=== PATIENT | male | born 1955 | race Caucasian/White ===

== ENCOUNTER → 2017-04-17 | Outpatient (CLI) | payer MEDICARE, BC ==
[2017-04-17 10:52] LABS: ALT 41 U/L (21-72); AST 36 U/L (17-59); Alkaline Phosphatase 70 U/L (38-126); Anion Gap 10 mmol/L; Blood Urea Nitrogen 13 mg/dL (9-20); Calcium 8.9 mg/dL (8.4-10.2); Carbon Dioxide 25 mmol/L (22-30); Chloride 108 mmol/L (98-107); Cholesterol 164 mg/dL (<200); Glucose 98 mg/dL (74-99); HDL Cholesterol 49 mg/dL (40-60); Non-African American GFR(MDRD) >60 (>60 ml/min/1.73 sqM); Potassium 4.1 mmol/L (3.5-5.1); Sodium 143 mmol/L (137-145); Total Bilirubin 0.4 mg/dL (0.2-1.3); Total Protein 7.7 g/dL (6.3-8.2)
== END | disposition home or self-care (01) ==
LOC: LABWHC1 09:27
PROVIDERS: ATTEND Internal Medicine Interventional Cardiology
DX: E78.2 Mixed hyperlipidemia (principal); I42.8 Other cardiomyopathies
CPT/HCPCS: 36415; 80053; 80061; 84443

== ENCOUNTER 2019-11-26 10:04 | Day surgery (SDC) | payer MEDICARE, BC ==
[2019-11-25 11:39] VITALS: BMI 40.8
[~2019-11-26 10:04] MED LIST: LACTATED RINGERS 1,000 ML IV SCH; LIDOCAINE 1% (10MG/ML) FOR IV START INTRADERMA PRN; SODIUM CHLORIDE 0.9% 1,000 ML IV SCH
[2019-11-26 11:12] LABS: Basophils # (A) 0.1 k/uL (0-0.2); Basophils % (A) 1 %; Eosinophils # (A) 0.3 k/uL (0-0.7); Eosinophils % (A) 4 %; HCT 43.4 % (39.0-53.0); Lymphocytes # (A) 1.8 k/uL (1.0-4.8); Lymphocytes % (A) 28 %; MCHC 32.3 g/dL (31.0-37.0); MCV 89.8 fL (80.0-100.0); Mean Platelet Volume 7.3; Monocytes # (A) 0.4 k/uL (0-1.0); Monocytes % (A) 5 %; Neutrophils % (A) 61 %; Platelet Count 217 k/uL (150-450); RBC 4.84 m/uL (4.30-5.90); RDW 15.1 % (11.5-15.5); WBC 6.6 k/uL (3.8-10.6)
[2019-11-26] MEDS ORDERED: SODIUM CHLORIDE 0.9% 1,000 ML IV ONE (11:18)
[2019-11-26 11:24] LABS: African American GFR (CKD) >90 (>60 ml/min/1.73 sqM); Anion Gap 8 mmol/L; Blood Urea Nitrogen 15 mg/dL (9-20); Calcium 8.9 mg/dL (8.4-10.2); Carbon Dioxide 24 mmol/L (22-30); Chloride 106 mmol/L (98-107); Glucose 94 mg/dL (74-99); Non-African American GFR(CKD) >90 (>60 ml/min/1.73 sqM); Potassium 4.4 mmol/L (3.5-5.1); Sodium 138 mmol/L (137-145)
[2019-11-26] MEDS ORDERED: LIDOCAINE 1% INJ 10MG/ML (20 ML MDV) ONE ×2 (13:31→13:48)
[2019-11-26] MEDS ORDERED: HEPARIN SODIUM,PORCINE 10,000 UNIT/ML 1 ML VIAL ONE (13:48)
[2019-11-26] MEDS ORDERED: GLYCOPYRROLATE 0.2 MG/ML 2 ML VIAL ONE (13:48)
[2019-11-26] MEDS ORDERED: fentaNYL (PF) 50 MCG/ML 2 ML AMP ONE (13:48)
[2019-11-26] MEDS ORDERED: NEOSTIGMINE 1 MG/ML 10 ML VIAL ONE (13:48)
[2019-11-26] MEDS ORDERED: ISOPROTERENOL 250 MCG/1.25 ML SYR IV ONE (13:48)
[2019-11-26] MEDS ORDERED: ePHEDrine SULFATE/0.9% NACL/PF 50 MG/5 ML SYRINGE IV ONE (13:48)
[2019-11-26] MEDS ORDERED: MIDAZOLAM 2 MG/2 ML VIAL ONE (13:48)
[2019-11-26] MEDS ORDERED: FUROSEMIDE 10 MG/ML 2 ML VIAL ONE (13:48)
[2019-11-26] MEDS ORDERED: ROCURONIUM BROMIDE 10 MG/ML 5 ML VIAL IV ONE (13:48)
[2019-11-26] MEDS ORDERED: SUCCINYLCHOLINE CHLORIDE VIAL 200 MG/10 ML VIAL IV ONE (13:48)
[2019-11-26] MEDS ORDERED: PHENYLEPHRINE-0.9% NACL SYG 1 MG/10 ML SYRINGE ONE (13:48)
[2019-11-26] MEDS ORDERED: PROTAMINE SULFATE 10 MG/ML 5 ML VIAL IV ONE (13:48)
[2019-11-26] MEDS ORDERED: PROPOFOL 10 MG/ML 20 ML VIAL IV ONE (13:48)
[2019-11-26] MEDS ORDERED: LIDOCAINE 1% INJ 10MG/ML (20 ML MDV) SQ ONE (14:40)
[2019-11-26] MEDS ORDERED: HEPARIN SOD,PORK IN 0.45% NACL 25,000 UNIT in 0.45% NACL 1 250ML.BAG IV ONE (15:08)
[2019-11-26] MEDS ORDERED: IOPAMIDOL-370 100ML BTL INJ ONE (16:50)
[2019-11-26] MEDS ORDERED: HEPARIN SODIUM (1,000 UNIT/ML) 1,000 UNIT in SODIUM CHLORIDE 0.9% 1,000 ML IRRIGATION ONE (17:00)
[2019-11-26] MEDS ORDERED: SODIUM CHLORIDE 0.9% 500 ML 500 ML IV ONE (17:19)
[2019-11-26] MEDS ORDERED: ACETAMINOPHEN TAB 325 MG TAB PO PRN (18:40)
--- NOTE | 2019-11-26 18:45 | P.PRLE ---
RE: NormaflorSajanr Kwabena Mr. Vaughn underwent an A. fib ablation following which we could not induce any atrial tachycardia or atrial fibrillation. He will continue ELIQUIS 5 mg twice daily and I would recommend reducing the dose of amiodarone to 100 mg by mouth daily by 22 of December. He tolerated the procedure well without any acute complications. Thank you for entrusting me with the care of the patient Warm regards Sincerely Kam Lloyd
--- NOTE | 2019-11-26 18:54 | P.PCN ---
Preoperative Diagnosis: Diagnosis Atrial fibrillation, symptomatic, refractory to therapy/amiodarone Paroxysmal Associated with widening of the QRS, suggestive of apparent conduction Result No left atrial appendage mass seen on intracardiac echo Successful pulmonary vein isolation of all veins using cryo-ablation Complete entrance block in all 4 veins confirmed No evidence for phrenic nerve injury Linear ablation in the left atrium along the septum between the right pulmonary veins anteriorly and the transseptal puncture site Ablation was performed along the fractionated electrograms Thereafter diagnostic EP study did NOT reveal any inducible atrial fibrillation or atrial tachycardia despite high-dose Isuprel, burst stimulation, extra stimulation and straight pacing Left bundle branch block aberrancy with atrial pacing at a cycle length of 230 ms, consistent with his clinical presentation Esophageal deflection YES Electrical cardioversion with a synchronized shock across the chest NO Procedure details Patient was brought to the EP lab in a fasting state. Written informed consent was obtained prior to the procedure. Procedure performed under general anesthesia After initial muscle relaxant use, muscle relaxants were not given thereafter in order to assess phrenic nerve during procedure. Patient prepped and draped as per protocol Full cryo-set up with standard preparation of the cryoablation tools done. Femoral Venous access obtained on the right and left groins Venous and arterial Sheaths placed. Diagnostic catheters for the high right atrium, phrenic nerve stimulation and pacing, His bundle, RV and coronary sinus placed Intracardiac echo catheter placed. Long sheath placed in the right atrium Left and right transseptal catheterization performed under intracardiac echo guidance. Intravenous heparin with aCT above 300 Later, catheter positioning and balloon positioning in the left atrium, under intracardiac echo guidance Diagnostic EP study with Drug infusion Coronary sinus pacing and recording Baseline measurements Sinus cycle length 1065 ms, [place] interval 157 ms, QRS 116 ms, QT 470 ms AH interval 60 ms and HV interval 48 ms Atrial pacing performed from the coronary sinus, 3 sites RV pacing performed Transseptal catheterization performed RA pressure 17/8/13 LA pressure 21/10/14 Transseptal catheterization performed with standard sheath. The cryoablation sheath was then placed with an over the wire exchange without any acute complications. All 4 pulmonary veins were isolated in the following sequence: Left superior followed by left inferior followed by right superior followed by right inferior The cryo-ablation balloon was placed at the os of each vein 1.5 mL of IV dye was injected to confirm an occluded vein Goal during cryoablation was to achieve complete occlusion of the pulmonary vein, achieve -30 degrees C at 30 seconds and achieve -40 degrees C at 60 seconds and a time to effect of less than 60-90 seconds, . If not the balloon was repositioned to obtain this result After completion of Cryoblation with durations from 180-240 seconds, entrance block was confirmed with the Attain circular catheter in a roving fashion around the antrum of the pulmonary veins Phrenic nerve pacing was performed from the SVC, right innominate vein area and diaphragm voltage was monitored. Diaphragmatic contractions were also monitored manually for strength of contraction. Parameter goals for each cryo freeze Complete occlusion of the appropriate vein -30 degrees C by 30 seconds -40 degrees C by 60 seconds Minimum between minus 40-55 degrees C Thaw time greater than 10 seconds Balloon visualized by intracardiac echo The esophagus was intubated. Esophageal Temperature monitoring with a CIRCA catheter formed. Esophageal deflection for hypothermia of the esophagus below 30 degrees C Left superior pulmonary vein Complete isolation, entrance block Left inferior pulmonary vein Complete isolation, entrance block Right superior pulmonary vein, during phrenic nerve pacing Complete isolation, entrance block Right inferior pulmonary vein, during phrenic nerve pacing Complete isolation, entrance block At the end of the procedure the Achieve catheter was once again used to check for entrance block Phrenic nerve stimulation was performed to confirm diaphragmatic stimulation the end of the procedure Cine fluoroscopy was performed at the very end of the procedure to confirm movement of both diaphragms with inspiration and expiration At the end of the procedure the patient was extubated Heparin was reversed Venous sheaths were removed and hemostasis assured Procedures performed (PVI followed by linear ablation) Diagnostic EP study with attempted arrhythmia induction on off Isuprel CS pacing and recording Left and right transseptal catheterization 3-D mapping of the tachycardia 3D mapping) Intracardiac echocardiography Pulmonary vein isolation with transseptal and comprehensive EPS, [id number] Linear ablation, left atrium, +[id number] Drug Infusion +[id number]
--- NOTE | 2019-11-26 18:58 | P.PCN ---
Preoperative Diagnosis: Extended procedure duration This was a long procedure on account of the anatomy and the size of the pulmonary veins Significantly rotated heart The left superior pulmonary vein was very superiorly and anteriorly directed Right inferior pulmonary vein was very posteriorly directed The left superior pulmonary vein in particular as well as the right inferior pulmonary veins were quite large Occluding this vein was challenging but finally successful It took multiple attempts at the left superior pulmonary vein to get a true antral level isolation with the cryo balloon Occluding the right inferior pulmonary vein was also challenging finally successful All 4 veins were completely isolated and quiescent at the end of the procedure with both entrance and exit block Voltage mapping was also performed for all 4 pulmonary veins The segment of the anterior wall between the right sided pulmonary veins and the septal linear ablation Was also quiescent with exit block
--- NOTE | 2019-11-26 19:01 | P.DS ---
Providers Attending physician: Kam Lloyd Primary care physician: [facility] Course: Impression Symptomatic paroxysmal atrial fibrillation, refractory to amiodarone Intermittent wide QRS tachycardia Left bundle branch block aberrancy noted with atrial pacing at a cycle length of 230 ms at EP study Successful isolation of all 4 pulmonary veins with entrance and exit block Linear ablation along the septum of the left atrium with exit block within the atrial segment between the right-sided pulmonary veins and the septal linear ablation Plan Lifelong anticoagulation Reduce the dose of amiodarone to 100 mg by mouth daily in 3-4 weeks Follow-up in the office with Dr. Crespo in 1-2 weeks Plan - Discharge Summary Discharge Rx Participant: Yes New Discharge Prescriptions: Continue Sertraline HCl [Zoloft] 100 mg PO DAILY Metoprolol Tartrate 50 mg PO BID traMADol HCL [Ultram] 50 mg PO BID PRN PRN Reason: Pain rOPINIRole HCL [Requip] 4 mg PO BID Levothyroxine Sodium [Synthroid] 175 mcg PO DAILY Atorvastatin [Lipitor] 40 mg PO DAILY Amiodarone [Cordarone] 200 mg PO DAILY #0 Tamsulosin [Flomax] 0.4 mg PO DAILY Naproxen [Naprosyn] 500 mg PO Q12HR PRN PRN Reason: Pain Diclofenac Sodium Gel [Voltaren Gel] 4 gm TOPICAL QID PRN PRN Reason: Pain Pregabalin [Lyrica] 150 mg PO BID Docusate [Colace] 100 mg PO DAILY Apixaban [Eliquis] 5 mg PO BID Discharge Medication List Metoprolol Tartrate 50 mg PO BID 10/24/14 [History] Sertraline HCl [Zoloft] 100 mg PO DAILY 10/24/14 [History] Atorvastatin [Lipitor] 40 mg PO DAILY 04/01/16 [History] Levothyroxine Sodium [Synthroid] 175 mcg PO DAILY 04/01/16 [History] rOPINIRole HCL [Requip] 4 mg PO BID 04/01/16 [History] traMADol HCL [Ultram] 50 mg PO BID PRN 04/01/16 [History] Amiodarone [Cordarone] 200 mg PO DAILY #0 04/05/16 [Rx] Apixaban [Eliquis] 5 mg PO BID 11/25/19 [History] Diclofenac Sodium Gel [Voltaren Gel] 4 gm TOPICAL QID PRN 11/25/19 [History] Docusate [Colace] 100 mg PO DAILY 11/25/19 [History] Naproxen [Naprosyn] 500 mg PO Q12HR PRN 11/25/19 [History] Pregabalin [Lyrica] 150 mg PO BID 11/25/19 [History] Tamsulosin [Flomax] 0.4 mg PO DAILY 11/25/19 [History] Follow up Appointment(s)/Referral(s): Maurice Crespo MD [STAFF PHYSICIAN] - 1 Week Activity/Diet/Wound Care/Special Instructions: Post EP study - Ablation instructions 1. Keep access sites dry for 2 days. 2. No heavy lifting or straining for 2 days. 3. Avoid bending the hips repeatedly for 2 days. 4. You may go up and down stairs slowly Call if the following is noted 1. Bleeding, increasing swelling or pain at the access sites. 2. Increasing chest discomfort, especially upon taking a deep breath. 3. Increasing shortness of breath, at rest or with exertion. 4. Undue cough / phlegm 5. Difficulty or pain while swallowing. 6. Pain or change in color in the extremities. 7. Fever, chills, rigors. 8. Increasing headache or neurologic symptoms. 9. Dizziness, fainting, palpitations Discharge Disposition: HOME SELF-CARE
--- NOTE | 2019-11-26 19:05 | PCN ---
PROCEDURE NOTE Sajan Vaughn is a 63-year-old male patient who has symptomatic paroxysmal atrial fibrillation with RVR with widening of the QRS intermittently suggestive of aberrant conduction. He has failed amiodarone. He was brought in for an atrial fibrillation ablation and a diagnostic EP study. The patient was brought to the EP lab in a fasting state. Written informed consent was obtained prior to the procedure. Please see the rest of the dictation separately. MMODL / IJN: [id number] /
[2019-11-26] MEDS ORDERED: ACETAMINOPHEN IV (For NPO) 1,000 MG in EMPTY BAG 1 BAG IVPB ONE (20:00)
[2019-11-26] MEDS: APIXABAN 5 MG TAB PO SCH (20:27)
[2019-11-26] MEDS: PREGABALIN 75 MG CAP PO SCH (20:27)
[2019-11-26] MEDS: METOPROLOL TARTRATE 50 MG TAB PO SCH (20:27)
[2019-11-26] MEDS: HYDROcodone/APAP 5-325MG 1 EACH TAB PO PRN (20:27)
[2019-11-26] MEDS: rOPINIRole HCL 4 MG TABLET PO SCH (23:28)
[2019-11-27] MEDS: HYDROcodone/APAP 5-325MG 1 EACH TAB PO PRN (01:01)
[2019-11-27] MEDS ORDERED: LEVOTHYROXINE 88 MCG TAB PO SCH (06:30)
[2019-11-27] MEDS ORDERED: AMIODARONE 200 MG TAB PO SCH (09:00)
[2019-11-27] MEDS ORDERED: TAMSULOSIN 0.4 MG CAP.ER.24H PO SCH (09:00)
[2019-11-27] MEDS ORDERED: ATORVASTATIN 40 MG TAB PO SCH (09:00)
[2019-11-27] MEDS ORDERED: SERTRALINE 100 MG TAB PO SCH (09:00)
[2019-11-27 09:07] VITALS: BP 114/58; PULSE 63; RESP 18; TEMP 98.1
[2019-11-27] MEDS: rOPINIRole HCL 4 MG TABLET PO SCH (09:07)
[2019-11-27] MEDS: METOPROLOL TARTRATE 50 MG TAB PO SCH (09:07)
[2019-11-27] MEDS: PREGABALIN 75 MG CAP PO SCH (09:07)
[2019-11-27] MEDS: APIXABAN 5 MG TAB PO SCH (09:07)
== END 2019-11-27 09:50 | disposition home or self-care (01) ==
LOC: CATHEP 10:04 → 3SCARD 18:18 → CATHEP 11-27 09:50
PROVIDERS: ATTEND Internal Medicine Clinical Cardiac Electrophysiology
DX: I48.0 Paroxysmal atrial fibrillation (principal); I44.7 Left bundle-branch block, unspecified; I42.8 Other cardiomyopathies; I10 Essential (primary) hypertension; E78.2 Mixed hyperlipidemia; M19.90 Unspecified osteoarthritis, unspecified site; E66.01 Morbid (severe) obesity due to excess calories; E11.9 Type 2 diabetes mellitus without complications; G47.33 Obstructive sleep apnea (adult) (pediatric); N40.0 Benign prostatic hyperplasia without lower urinary tract symptoms; Z79.1 Long term (current) use of non-steroidal anti-inflammatories (NSAID); Z79.01 Long term (current) use of anticoagulants; Z79.890 Hormone replacement therapy; Z79.899 Other long term (current) drug therapy; Z86.73 Personal history of transient ischemic attack (TIA), and cerebral infarction without residual deficits; Z96.653 Presence of artificial knee joint, bilateral; Z68.42 Body mass index [BMI] 45.0-49.9, adult; Z98.890 Other specified postprocedural states; Z87.891 Personal history of nicotine dependence; Z88.7 Allergy status to serum and vaccine; Z88.5 Allergy status to narcotic agent; Z99.89 Dependence on other enabling machines and devices; Z96.611 Presence of right artificial shoulder joint; Z96.612 Presence of left artificial shoulder joint
CPT/HCPCS: 85347; 93623; 93662; 93613; 93656; 93657; 80048; 85025; 87635; C1769 ×4; C1894 ×2; C1759; C1893; C1733; C1766; C1730; C1732; J2250; J0330; J2720; J1644 ×3; J1940; J2710; J2001; J3010; J0131; J2370; J2704; Q9967

== ENCOUNTER → 2022-05-27 | Outpatient (CLI) | payer MEDICARE, OTHER ==
--- NOTE | 2022-05-27 21:12 | MR ---
EXAMINATION TYPE: MR lumbar spine wo con DATE OF EXAM: 05/27/2022 9:35 AM COMPARISON: None. CLINICAL INDICATION:Male, 66 years old with history of M48.061 SPINAL STENOSIS, LUMBAR REGION; TECHNIQUE: Multi planar, multi sequence imaging was performed utilizing: T1-weighted, T2-weighted, a nd turbo inversion recovery imaging of the lumbar spine. IV Contrast: None. FINDINGS: Alignment: The lumbar vertebral bodies have preserved alignment. Cord: The conus medullaris and the distal spinal cord appear unremarkable with regards to their signa l intensity and morphology. Bones/Discs: Degeneration changes with bony edema involving L2 and L3 most pronounced posteriorly. Th ere is some vertebral loss of height involving the L2 vertebral body of at least 25%. Multilevel deg enerative disc disease is noted and most pronounced at the L2-L3. L1-L2: No evidence of significant spinal canal stenosis. Facet joint arthropathy with mild bilateral neural foraminal stenosis. L2-L3: Central disc extrusion with severe spinal canal stenosis. There is bunching of the cauda equin a. There is inferior migration of disc material up to 8 mm below the disc level. There is moderate bi lateral neural foraminal stenosis. L3-L4: Disc bulging and facet joint arthropathy result in mild to moderate spinal canal stenosis. The re is mild bilateral neural foraminal stenosis. L4-L5: Disc bulge without significant spinal canal stenosis.Facet joint arthropathy with mild bilater al neural foraminal stenosis. L5-S1: No evidence of significant spinal canal stenosis . Facet joint arthropathy with mild left neur al foraminal stenosis. The right neural foramen is patent. Other findings: None. IMPRESSION: 1. Loss of height of the L2 vertebral body most pronounced anteriorly with bony edema concerning for underlying compression acute/subacute fracture. 2. L2-L3 central disc extrusion resulting in severe spinal canal stenosis with cauda equina bunching . There is moderate bilateral neural foraminal stenosis at this level.
== END | disposition home or self-care (01) ==
LOC: RADMRIMAIN 08:11
PROVIDERS: ATTEND Nurse Practitioner Family
DX: M48.061 Spinal stenosis, lumbar region without neurogenic claudication (principal); M51.26 Other intervertebral disc displacement, lumbar region; M99.73 Connective tissue and disc stenosis of intervertebral foramina of lumbar region; R29.890 Loss of height
CPT/HCPCS: 72148

== ENCOUNTER 2022-10-07 09:31 | Day surgery (SDC) | payer MEDICARE, OTHER ==
--- NOTE | 2022-10-06 19:30 | HP ---
HISTORY AND PHYSICAL CHIEF COMPLAINT: Sore on his tongue. HISTORY OF PRESENT ILLNESS: This patient is a 66-year-old male, who was recently seen in my office complaining of having a sore spot on his tongue. He notes that on the right side of his tongue, there has been a sore area that has been there for at least 6 months. He denies biting his tongue, but states that it does occasionally rub against his dentures and become quite tender. He does not smoke and never has used any tobacco products. His does not smoke either. The area does not bleed or interfere with his swallowing. At the time that he was seen in the office, clinical examination of the tongue revealed that there was a rather large approximately 1 to 1.5 cm oblong lesion located along the right lateral dorsal portion of the tongue. Palpation of the area revealed that it was well circumscribed, firm, and mobile. It did not elicit any tenderness, and it did not appear to be friable. It was recommended to the patient that this lesion be excised under general anesthesia. The patient was advised that he may or may not have several dissolvable sutures after the excision of the lesion. PAST MEDICAL HISTORY: Reveals he has no allergies to medications. CURRENT MEDICATIONS: Include: 1. Amiodarone. 2. Atorvastatin. 3. Fioricet. 4. Donepezil. 5. Xarelto. 6. Lasix. 7. Synthroid. 8. Metoprolol. 9. Pregabalin. 10.Vicodin. 11.Ropinirole. 12.Tamsulosin. PREVIOUS SURGERIES: Include cervical fusion, lower back surgery, bilateral knee surgery, bilateral shoulder surgery, and cataract surgery. REVIEW OF SYSTEMS: Reveals, CARDIOVASCULAR SYSTEM: Positive for hypertension, ASHD, and atrial fibrillation. METABOLIC/ENDOCRINE SYSTEM: Positive for hypercholesterolemia and hypothyroidism. MUSCULOSKELETAL SYSTEM: Positive for osteoarthritis. The remainder of the review of systems is unremarkable. 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 PHYSICAL EXAMINATION: GENERAL: This patient is a 66-year-old male, who is alert and cooperative. HEENT: The patient is normocephalic. Tympanic membranes are normal. Middle ear spaces are free of any fluid or infection. Pupils are equal, round, and react to light and accommodation. Extraocular movements are within normal limits. Intranasal examination reveals severe septal deviation to the left with compensatory hypertrophy of the inferior turbinates. Examination of the oropharynx with attention to the tongue reveals the patient has a 1 to 1.5 cm oblong, well-circumscribed, mobile, almost sessile lesion located in the right lateral dorsal portion of the tongue. Palpation of the area reveals it is not tender nor friable. Palpation of the patient's neck is negative for any neck masses or lymphadenopathy. Cranial nerves 2 through 12 and the remainder of the head and neck exam all within normal limits. CHEST/CARDIOVASCULAR: Both lung rodríguez are clear to percussion and auscultation. The patient is in regular sinus rhythm. S1 and S2 are present without evidence of any murmurs. Peripheral pulses are bilaterally symmetrical. ABDOMEN: There is no evidence of any masses, megaly, or tenderness. The abdomen is soft. SKIN: Unremarkable. MUSCULOSKELETAL/NEUROLOGICAL: All within normal limits. RECTAL: Deferred at this time because the patient has this done on a regular basis at his family physician's office. The remainder of the physical exam is unremarkable. ASSESSMENT: Right tongue lesion. PLAN: The patient is scheduled to undergo excision of the right tongue lesion under general anesthesia in a.m. Attention, RNs in the pre-surgical area: I have ordered for this patient to receive 1000 mg of Ofirmev IV to be given once an intravenous line has been established. In addition, I have ordered for this patient to receive 2 g of Ancef IV to be given once an intravenous line has been established. If the Pharmacy Department sends a different pre-surgical prophylactic antibiotic to the pre-surgical area for this patient, please cancel that order and return the medication to the Pharmacy Department. Also, make sure that the patient's account is credited appropriately. I have discussed the risks, benefits and alternative therapies for the above-mentioned procedure and for both sedation/analgesia as well as necessary blood product administration, if indicated, as they pertain to this patient. The patient has indicated his understanding and acceptance of the risks and procedures discussed. MMODL / IJN: [id number] /
[~2022-10-07 09:31] MED LIST changes: +DEXAMETHASONE SOD PHOSPHATE 4 MG/ML 1 ML VIAL IV ONE; +HYDROmorphone 0.5 MG/0.5 ML SYRINGE IVP PRN; +METOCLOPRAMIDE 5 MG/ML 2 ML VIAL IVP PRN; +ONDANSETRON 4 MG/2 ML VIAL IVP ONE; +Pre Op ABX Message 1 EACH MISC MISCELLANE ONE; -SODIUM CHLORIDE 0.9% 1,000 ML IV SCH
[2022-10-07] MEDS ORDERED: ACETAMINOPHEN IV (For NPO) 1,000 MG/100 ML VIAL IVPB ONE (10:58)
[2022-10-07] MEDS ORDERED: ACETAMINOPHEN IV (For NPO) 1,000 MG in EMPTY BAG 1 BAG IVPB ONE (12:00)
[2022-10-07] MEDS ORDERED: PROPOFOL 10 MG/ML 20 ML VIAL IV ONE (12:09)
[2022-10-07] MEDS ORDERED: LIDOCAINE 2% INJ 20 MG/ML (2 ML VIAL) ONE (12:09)
[2022-10-07] MEDS ORDERED: SUCCINYLCHOLINE CHLORIDE 200 MG/10 ML VIAL IV ONE (12:09)
[2022-10-07] MEDS ORDERED: GLYCOPYRROLATE 0.2 MG/ML 2 ML VIAL ONE (12:09)
[2022-10-07] MEDS ORDERED: fentaNYL (PF) 50 MCG/ML 2 ML AMP ONE (12:09)
[2022-10-07] MEDS: ceFAZolin 3 GM in SODIUM CHLORIDE 0.9% 100 ML IVPB PRN ×2 (12:15→12:25)
[2022-10-07 13:30] VITALS: TEMP 96.8
[2022-10-07 14:05] VITALS: RESP 20
[2022-10-07 15:03] VITALS: BP 140/88; PULSE 60
--- NOTE | 2022-10-10 13:14 | OP ---
OPERATIVE REPORT DATE OF SERVICE : 10/07/2022 PREOPERATIVE DIAGNOSIS: Right lateral tongue mass, approximately 2.5 x 1 to 1.5 cm in size. POSTOPERATIVE DIAGNOSIS: Right lateral tongue mass, approximately 2.5 x 1 to 1.5 cm in size, final pathology is pending. ANESTHESIA: General. PROCEDURE PERFORMED: Complete excision of large right lateral tongue mass. COMPLICATIONS: None. ESTIMATED BLOOD LOSS: Less than 35 mL. DESCRIPTION OF PROCEDURE: The patient was placed on operating table in supine position. After uneventful induction and endotracheal intubation, satisfactory general anesthesia was obtained. The patient was draped in usual customary fashion. Following this, a medium-sized dental bite block was placed in the right buccal sulcus. Next, the tip of the patient's tongue was grasped with a towel clip and pulled anteriorly and to the left thus exposing the lesion completely. No local anesthesia was used. Next, using a #15 scalpel, an elliptical incision was made into the mucous membranes/through the mucous membrane and into the superficial muscle layers. The lesion was excised completely. It was tagged as follows: Black suture to denote the superior edge, white suture to denote the inferior edge, a blue suture to denote the posterior edge of the lesion and a green suture to denote the anterior portion of the mass. The entire mass was placed in formalin and sent to Pathology for permanent sectioning. Hemostasis was obtained using electrocautery. The wound defect was closed in multiple/multiple layers/complex closure. The deep layers of the muscle were reapproximated using 4-0 Rapide absorbing Vicryl suture in an interrupted buried fashion. This was done to close any space. Next, the upper layers of the tongue were then closed using 4-0 Vicryl in interrupted buried fashion to approximate the muscle and the mucous membrane. Next, the mucous membrane was then approximated more carefully using 4-0 Rapide absorbing Vicryl in interrupted buried fashion. This was a complex closure in multiple layers. At this point, the procedure was terminated. There were no intraoperative complications. The patient was given 10 mg of Decadron to reduce any postoperative tongue edema. The patient was returned to the recovery room in satisfactory condition. Estimated blood was less than 35 mL. Final pathology is pending. MMODL / IJN: [id number] /
--- NOTE | 2022-10-10 19:23 | OP ---
OPERATIVE REPORT DATE OF SERVICE : 10/07/2022 PREOPERATIVE DIAGNOSIS: Right tongue mass, approximately 2 x 1 cm. POSTOPERATIVE DIAGNOSIS: Right tongue mass, approximately 2 x 1 cm, pathology pending. ANESTHESIA: General. PROCEDURE PERFORMED: Complete excision of right tongue mass with complex closure. COMPLICATIONS: None. ESTIMATED BLOOD LOSS: Less than 35 mL. DESCRIPTION OF PROCEDURE: The patient was placed on the operating table in supine position. After uneventful induction and endotracheal intubation, satisfactory general anesthesia was obtained. Next, the patient was draped in the usual and customary fashion. Following this, a medium-sized dental bite block was placed in the right buccal sulcus. Next, the tip of the patient's tongue was grasped with a towel clip and pulled anteriorly and to the left, thus exposing the large tongue lesion. No local anesthetic was used. Next, using a #15 scalpel, an elliptical excision of the lesion was made cutting through the mucous membrane and down to and including some of the superficial muscle layers of the tongue. The lesion was excised in total. It measured approximately 2 x 1 to 1.5 cm. The lesion was tagged as follows: Black suture denoting the superior edge, white suture denoting the inferior edge, green suture denoting the anterior edge, and suture denoting the posterior edge. MMODL / IJN: [id number] /
== END 2022-10-07 14:50 | disposition home or self-care (01) ==
LOC: OR 09:31
PROVIDERS: ATTEND Otolaryngology
DX: D10.1 Benign neoplasm of tongue (principal); Z79.01 Long term (current) use of anticoagulants; Z79.890 Hormone replacement therapy; Z79.899 Other long term (current) drug therapy
CPT/HCPCS: 88309; 41112; J0330; J1100; J0690; J2405; J3010; J0131; J2704; J1170; J2001

== ENCOUNTER 2022-10-17 10:22 | Day surgery (SDC) | payer MEDICARE, OTHER ==
[2022-10-12 14:32] VITALS: BMI 35.9
[~2022-10-17 10:22] MED LIST changes: -DEXAMETHASONE SOD PHOSPHATE 4 MG/ML 1 ML VIAL IV ONE; -HYDROmorphone 0.5 MG/0.5 ML SYRINGE IVP PRN; -METOCLOPRAMIDE 5 MG/ML 2 ML VIAL IVP PRN; -ONDANSETRON 4 MG/2 ML VIAL IVP ONE; -Pre Op ABX Message 1 EACH MISC MISCELLANE ONE
[2022-10-17 11:11] VITALS: TEMP 97.4
[2022-10-17] MEDS ORDERED: LIDOCAINE 2% INJ 20 MG/ML (2 ML VIAL) ONE (11:26)
[2022-10-17] MEDS ORDERED: PROPOFOL 10 MG/ML 20 ML VIAL IV ONE (11:26)
--- NOTE | 2022-10-17 11:45 | P.OP ---
Date of Procedure: 10/17/22 Preoperative Diagnosis: GI bleed Postoperative Diagnosis: Internal and external hemorrhoids Diverticulosis Procedure(s) Performed: Colonoscopy Anesthesia: MAC Surgeon: Skip Lezama Pathology: none sent Condition: stable Disposition: PACU Description of Procedure: The patient's placed on the endoscopy table in the lateral position. He received IV sedation. Digital rectal exam performed. This revealed internal and external hemorrhoids. Flexible colonoscope was then placed patient anus and passed throughout the entire colon. The ileocecal valve was visualized. The cecum, ascending and transverse colon appeared all. In the descending; there is moderate diverticular changes. The scope was then brought back the rectum this appeared normal. Scope withdrawn for patient. And internal and external hemorrhoids noted. There is no evidence of any active GI bleed. His presumed patient may been bleeding from hemorrhoids.
[2022-10-17 11:53] VITALS: RESP 16
[2022-10-17 12:13] VITALS: BP 123/72; PULSE 65
== END 2022-10-17 12:25 | disposition home or self-care (01) ==
LOC: ORWHC2ENDO 10:22
PROVIDERS: ATTEND Surgery
DX: K57.30 Diverticulosis of large intestine without perforation or abscess without bleeding (principal); K64.4 Residual hemorrhoidal skin tags; K64.8 Other hemorrhoids; I48.91 Unspecified atrial fibrillation; G47.33 Obstructive sleep apnea (adult) (pediatric); I10 Essential (primary) hypertension; E03.9 Hypothyroidism, unspecified; Z79.890 Hormone replacement therapy; Z86.73 Personal history of transient ischemic attack (TIA), and cerebral infarction without residual deficits; F03.90 Unspecified dementia, unspecified severity, without behavioral disturbance, psychotic disturbance, mood disturbance, and anxiety; Z79.01 Long term (current) use of anticoagulants; Z79.899 Other long term (current) drug therapy; Z96.653 Presence of artificial knee joint, bilateral; Z96.611 Presence of right artificial shoulder joint; Z96.612 Presence of left artificial shoulder joint; Z82.49 Family history of ischemic heart disease and other diseases of the circulatory system; Z81.8 Family history of other mental and behavioral disorders; Z98.890 Other specified postprocedural states; Z88.2 Allergy status to sulfonamides; Z88.5 Allergy status to narcotic agent
CPT/HCPCS: 45378; J2704; J2001

== ENCOUNTER 2022-10-19 06:09 | Day surgery (SDC) | payer MEDICARE, OTHER ==
[2022-10-12 14:39] VITALS: BMI 35.9
[~2022-10-19 06:09] MED LIST changes: +ACETAMINOPHEN TAB 500 MG TAB PO PRN; +DEXAMETHASONE SOD PHOSPHATE 4 MG/ML 1 ML VIAL IV ONE; +HEPARIN SODIUM,PORCINE/PF 5,000 UNIT/0.5 ML SYRINGE SQ PRN; +MIDAZOLAM 2 MG/2 ML VIAL IV PRN; +ONDANSETRON 4 MG/2 ML VIAL IVP ONE; +Pre Op ABX Message 1 EACH MISC MISCELLANE ONE
[2022-10-19] MEDS ORDERED: HYDROmorphone 0.5 MG/0.5 ML SYRINGE IVP PRN (07:00)
[2022-10-19] MEDS ORDERED: ONDANSETRON 4 MG/2 ML VIAL ONE (07:03)
[2022-10-19] MEDS ORDERED: BUPIVACAIN-EPI 0.25%-1:200,000 30 ML VIAL SQ ONE (07:20)
[2022-10-19] MEDS ORDERED: SODIUM CHLORIDE 0.9% 100 ML BAG ONE (07:35)
[2022-10-19] MEDS ORDERED: PROPOFOL 10 MG/ML 20 ML VIAL IV ONE (07:35)
[2022-10-19] MEDS ORDERED: MIDAZOLAM 2 MG/2 ML VIAL ONE (07:35)
[2022-10-19] MEDS ORDERED: fentaNYL (PF) 50 MCG/ML 2 ML AMP ONE (07:35)
[2022-10-19] MEDS ORDERED: ceFAZolin 1,000 MG VIAL ONE (07:35)
[2022-10-19] MEDS ORDERED: SODIUM CHLORIDE 0.9% 50 ML with ceFAZolin 3,000 MG IV ONE ×2 (07:55)
[2022-10-19 08:21] VITALS: TEMP 97.5
--- NOTE | 2022-10-19 08:23 | P.OP ---
Date of Procedure: 10/19/22 Preoperative Diagnosis: Internal and external hemorrhoids Postoperative Diagnosis: Internal and external hemorrhoids Procedure(s) Performed: Internal and external Hemorrhoidectomy Anesthesia: MAGGIE Surgeon: Skip Lezama Estimated Blood Loss (ml): 5 Pathology: other Condition: stable Disposition: PACU Description of Procedure: The patient's placed on the operative table in the prone jackknife position. He received spinal anesthetic. His anus was prepped and draped usual sterile fashion. The patient had a large internal and external hemorrhoids. The anal retractors placed anus. The left lateral hemorrhoidal column was grasped Since. Then using Harmonic scissors the rectus performed. Next the right anterior and right posterior hemorrhoidal columns were removed in identical fashion. Electrocautery was used for hemostasis.. No bleeding was seen. The anus was anesthetized anesthetized 1% local Xylocaine. Patient sent to recovery room in stable condition.
[2022-10-19 09:44] VITALS: RESP 20
[2022-10-19 10:29] VITALS: BP 122/74; PULSE 60
== END 2022-10-19 10:25 | disposition home or self-care (01) ==
LOC: OR 06:09
PROVIDERS: ATTEND Surgery
DX: K64.8 Other hemorrhoids (principal); K64.4 Residual hemorrhoidal skin tags; I10 Essential (primary) hypertension; E78.5 Hyperlipidemia, unspecified; I48.91 Unspecified atrial fibrillation; G47.33 Obstructive sleep apnea (adult) (pediatric); F03.90 Unspecified dementia, unspecified severity, without behavioral disturbance, psychotic disturbance, mood disturbance, and anxiety; Z99.89 Dependence on other enabling machines and devices; Z86.73 Personal history of transient ischemic attack (TIA), and cerebral infarction without residual deficits; Z79.899 Other long term (current) drug therapy; Z79.01 Long term (current) use of anticoagulants; Z98.890 Other specified postprocedural states
CPT/HCPCS: 46260; J2250; J1100; J2405; J0690; J3010; J2704

== ENCOUNTER → 2024-01-03 | Outpatient (CLI) | payer MEDICARE, OTHER ==
[2024-01-03 13:26] VITALS: BP 117/73; PULSE 52; RESP 16; TEMP 97.8
--- NOTE | 2024-01-03 14:46 | P.SLEEP ---
History of Present Illness DATE: 01/03/2024 CONSULTATION/NEW PATIENT EVALUATION HISTORY OF PRESENT ILLNESS/SLEEP-WAKE EVALUATION: 68-year-old gentleman had b een evaluated in the sleep center for possible obstructive sleep apnea hypopnea syndrome. Patient has history of obstructive sleep apnea hypopnea syndrome for 15 years, diagnosis made in another institution. For last several years patient lost about 100 pounds. I checked CPAP unit. CPAP unit is very old. Usage is 11 out of 30 nights, average only 3.4 hours per night. CPAP pressure in the ran ge between 7 and 15 cm of water. CPAP. Does not have a real ability to check apnea hypopnea index. SLEEP SCHEDULE: Usually sleep schedule from 10 PM to 3 AM 7 days a week. FALLING ASLEEP: No problems with falling asleep. DURING SLEEP: Patient snores while using CPAP according to his . He wakes up from sleep up to 5 times with 4 episodes of nocturia. Positive history of out of dream movements in sleep talking and sleepwalking. No history of hypnogogical hallucinations, sleep paralysis, or cataplexy. DURING THE DAY/WAKE STATE: In the morning patient wake up tired, has problems with memory, concentration, irritability, anxiety.. [place] sleepiness scale is significantly increased to 19. Patient takes nap at 3 AM. PAST MEDICAL HISTORY: Hypertension, hypothyroidism, atrial fibrillation. PAST SURGICAL HISTORY: Bilateral knee replacement, bilateral shoulder replacement, neck fusion, back fusion. MEDICATIONS: Please see below. SOCIAL HISTORY: Please see below. FAMILY HISTORY: Please see below. REVIEW OF SYSTEMS: Snoring, multiple awakenings from sleep, sleepiness during the day. No fevers. No double vision. No recent chest pain. No shortness of breath. No abdominal pain. No bleeding episodes. No blood in urine. No seizure episodes. PHYSICAL EXAMINATION: GENERAL: A pleasant patient without any distress. VITAL SIGNS: Please see below, weight 282 pounds, body mass index 41.0. HEENT: PERRLA, EOMI. Evaluation of oropharynx showed tongue protrudes midline, low position of soft palate Mallampati 34. NECK: Supple. No JVD. Thyroid is not palpable. 18 inches in circumference. LUNGS: Clear to percussion and to auscultation. Good air exchange. No wheezing or rhonchi. HEART: S1, S2 regular. No murmurs, gallops or rubs. ABDOMEN: Soft and nontender. Bowel sounds are present. No organomegaly appreciated. EXTREMITIES: No clubbing or cyanosis. ADMINISTRATOR HEALTH CARE FACILITY: Awake, alert, and oriented x3. Cranial nerves 2 to 7 intact. There is no fasciculation or atrophy noted. No focal deficits observed. ASSESSMENT: 1. History of obstructive sleep apnea for 15 years, diagnosed in another institution. For last several years patient lost around 100 pounds. CPAP unit is very old, no information about AHI. Lowest position of soft palate Mallampati 34, wide neck 18 inches in circumference, multiple awakenings from sleep. Obstructive sleep apnea hypopnea syndrome. 2. Obesity, BMI 41.0. 3. 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 4. History of sleepwalking. 5 sleep talking. 6 . History of atrial fibrillation. 7. History of hypertension. 8. Hyperlipidemia. 9 . Hypothyroidism. 10. Status post bilateral knee replacement. 11. Status post bilateral shoulder replacement. 12. Status post neck fusion. 13. Status post back fusion. PLAN: 1. Polysomnography for evaluation of patient's breathing during sleep at the present time after patient lost about 100 pounds. 2. CPAP/BiPAP titration if sleep study confirms obstructive sleep apnea- hypopnea syndrome. 3. Preferable position during sleep on the side. 4. No driving if patient feels any sleepiness. Patient is aware of civil and criminal liability for unsafe driving. 5. Sleep hygiene with regular sleep time for at least 7.5-8 hours. 6. Watching and losing weight. Thank you very much for referring this patient for consultation. Sincerely, Hao Pitts MD, PhD, FAASM. 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 left arm after Thanksgiving, minimal movement of arm still, see Dr Lloyd H & P History of Any Multi-Drug Resistant Organisms: None Reported Past Surgical History: Heart Catheterization, Hernia Repair, Joint Replacement, Orthopedic Surgery Additional Past Surgical History / Comment(s): BILAT TKA, BILAT SHOULDER REPLACEMENT, C- 4,5 ,6 FUSED, BILAT CTR, COLONOSCOPY, CARDIOVERSION 2012, trigger finger repairs Past Anesthesia/Blood Transfusion Reactions: No Reported Reaction Additional Past Anesthesia/Blood Transfusion Reaction / Comment(s): slow to wake from anesthesia Past Psychological History: Anxiety Additional Psychological History / Comment(s): CLAUTROPHOBIA Smoking Status: Never smoker Past Alcohol Use History: None Reported Past Drug Use History: None Reported - Past Family History Father Family Medical History: Cancer Mother Family Medical History: CVA/TIA, Diabetes Mellitus, Hyperlipidemia, Hypertension, Rheumatoid Arthritis (RA) Additional Family Medical History / Comment(s): sinus headaches, headaches, aneursym passed at 47 years old Sister(s) Additional Family Medical History / Comment(s): epilepsy Medications and Allergies Home Medications Medication Instructions Recorded Confirmed Type Atorvastatin [Lipitor] 40 mg PO DAILY 04/01/16 01/03/24 History Levothyroxine Sodium [Synthroid] 175 mcg PO DAILY 04/01/16 01/03/24 History rOPINIRole HCL [Requip] 4 mg PO BID 04/01/16 01/03/24 History Pregabalin [Lyrica] 225 mg PO BID 11/25/19 01/03/24 History Butalb/Acetaminophen/Caffeine 1 each PO DIRECTED PRN 10/04/22 10/19/22 History [Hrbrsm-Nwyuezuh-Zsbc 50-325-40] Cyclobenzaprine [Flexeril] 5 mg PO HS 10/04/22 10/19/22 History Divalproex [Depakote] 250 mg PO TID 10/04/22 01/03/24 History Donepezil HCl [Aricept] 10 mg PO HS 10/04/22 01/03/24 History Furosemide [Lasix] 20 mg PO DAILY 10/04/22 10/19/22 History HYDROcodone/APAP 7.5-325MG [[place] 1 tab PO BID PRN 10/04/22 01/03/24 History 7.5-325] Memantine [Namenda] 5 mg PO BID 10/04/22 01/03/24 History Metoprolol Tartrate [Lopressor] 25 mg PO BID 10/04/22 01/03/24 History Rivaroxaban [Xarelto] 20 mg PO HS 10/04/22 01/03/24 History Cephalexin [Keflex] 500 mg PO BID 1 Days #20 cap 10/06/22 10/19/22 Rx Amiodarone [Cordarone] 100 mg PO BID 10/12/22 01/03/24 History Acetaminophen Tab [Tylenol] 650 mg PO Q6H #30 tab 10/19/22 Rx Docusate [Colace] 100 mg PO BID #20 capsule 10/19/22 Rx Ibuprofen [Motrin] 600 mg PO Q6HR PRN #40 tab 10/19/22 Rx Tamsulosin HCl [Flomax] 0.4 mg PO Q24HR 10/19/22 01/03/24 History oxyCODONE HCL [OxyIR] 5 mg PO Q6H PRN 3 Days #10 tab 10/19/22 Rx Allergies Allergy/AdvReac Type Severity Reaction Status Date / Time No Known Allergies Allergy Verified 10/19/22 06:38 Physical Exam Vitals: Vital Signs Temp Pulse Resp BP Pulse Ox 01/03/24 13:23 97.8 F 52 L 16 117/73 98 Intake and Output 01/02/24 01/03/24 01/03/24 22:59 06:59 14:59 Other: Weight 127.913 kg Sleep Note - Sleep Data ESS Total: 19 - Sleep Note Sleep Note: Temperature: 97.8 F Pulse Rate: 52 Respiratory Rate: 16 Blood Pressure: 117/73 SpO2: 98 Height: 5 ft 9.5 in Weight: 127.913 kg BMI: Neck Circumference: 18
== END ==
LOC: 3 N SLEEP 13:05
PROVIDERS: ATTEND Internal Medicine
DX: G47.33 Obstructive sleep apnea (adult) (pediatric) (principal); E66.9 Obesity, unspecified; E78.5 Hyperlipidemia, unspecified; E03.9 Hypothyroidism, unspecified; I48.91 Unspecified atrial fibrillation; I10 Essential (primary) hypertension; G47.52 REM sleep behavior disorder; G47.8 Other sleep disorders; Z96.653 Presence of artificial knee joint, bilateral; Z96.611 Presence of right artificial shoulder joint; Z96.612 Presence of left artificial shoulder joint; Z98.1 Arthrodesis status; Z79.01 Long term (current) use of anticoagulants; Z79.899 Other long term (current) drug therapy; Z79.890 Hormone replacement therapy; Z68.41 Body mass index [BMI] 40.0-44.9, adult
CPT/HCPCS: 99211

== ENCOUNTER 2024-02-05 19:28 | Outpatient (CLI) | payer MEDICARE, OTHER ==
--- NOTE | 2024-03-01 15:54 | SLS ---
SLEEP STUDY PROCEDURE: Polysomnogram. PROCEDURE DESCRIPTION: The standard montage for clinical polysomnography included the electroencephalogram, the electroculogram, the mentalis surface electromyography and Lead II cardiography. The respiratory battery consisted of measurements of nasal/buccal air flow, pressure transducer measurements from nose, thoracic, and/or abdominal effort and intercostal surface electromyography. Video monitoring has been done to check for any parasomnia events. Nocturnal oxyhemoglobin saturations were obtained by finger oximetry. RESULTS: During diagnostic polysomnogram, sleep efficiency was slightly decreased to 83.3%. Latency to sleep onset was normal 15.5 minutes. Sleep architecture showed significant increasing stage N1 to 33.5%, absence of delta sleep 0%, and short REM sleep 8.5%. Respiratory channel showed 4 obstructive apneas, 2 mixed apneas, 357 hypopneas with total apnea-hypopnea index 55.8 with oxygen desaturation to 81%. EMG showed 67.4 periodic limb movements per hour, 0.5 microarousals per hour. Heart rate in the range between 53 and 62, average 57. Loud snoring has been documented. Nocturia x2 have been documented. IMPRESSION: 1. Extremely severe obstructive sleep apnea-hypopnea syndrome. 2. Severe periodic limb movements have been documented. Please see other impressions from consultation. PLAN: 1. CPAP titration for correction of respiratory abnormalities during sleep. 2. Sleep hygiene with time in bed for at least 8 hours. 3. Precautions related to no driving if feeling sleepiness. 4. Please check iron profile, including ferritin level. Low level of iron may increase risk for periodic limb movements. 5. Losing weight program. Thank you very much for allowing me to participate in the management of your patient. Sincerely, Hao Pitts MD, PhD, FAASM Diplomat of [employer] Sleep Medicine Board of [place]crete Crafts[employer] [facility] [place] MMODL / IJN: [id number] /
== END 2024-02-06 04:30 | disposition home or self-care (01) ==
LOC: 3 N SLEEP 19:28
PROVIDERS: ATTEND Internal Medicine
DX: G47.33 Obstructive sleep apnea (adult) (pediatric) (principal); G47.61 Periodic limb movement disorder
CPT/HCPCS: 95810

== ENCOUNTER 2024-03-17 19:06 | Outpatient (CLI) | payer MEDICARE, OTHER ==
--- NOTE | 2024-03-21 10:57 | P.PCN ---
Description of Procedure: CLINICAL: Titration with positive air pressure has been done for correction of respiratory abnormalities during sleep. DESCRIPTION OF PROCEDURE: The standard montage for clinical polysomnography included the electroencephalogram, the electrocardiogram, the mentalis surface electromyography and Lead II cardiography. The respiratory battery consisted of measurements of nasal /buccal air flow, pressure transducer measurements from the nose, thoracic and /or abdominal effort and intercostal surface electromyography. Video monitoring has been done to check for any parasomnia events. Nocturnal oxyhemoglobin saturations were obtained by finger oximetry. Step-smith titration with positive airway pressure was utilized to control respiratory events. Raw data of sleep recording has been reviewed and is adequate. RESULTS: Sleep efficiency was slightly decreased to 84.4%. Latency to sleep onset was normal 8.5 minutes.]. Sleep architecture showed stage N1 was extremely high 34.8%, Delta sleep was absent 0%, REM sleep was short 10.4%. Heart rate was minimum 47 BPM, maximum 57 BPM, average 51 BPM. EMG showed 0 periodic limb movements per hour. PAP titration have been done with CPAP up to the pressure 15 cm H2O. Patient had problems with CPAP, switched to BPAP. BPAP titrated up to 20/16 cm H2O. The best results were at the pressure 20/16 cm H2O. Apnea hypopnea index reduced to 5.1, lowest oxygen level at that pressure was 93%. With CPAP patient still continued to have some oxygen desaturations. IMPRESSION: 1. Severe obstructive sleep apnea hypopnea syndrome mostly on controle with BPAP treatment. 2. No significant periodic limb movements have been documented. Please see other impressions from consultation. PLAN: 1. The patient will have treatment with positive air pressure equipment with the level of pressure out of BiPAP with maximal inspiratory pressure 20 and minimal inspiratory pressure 9 cm H2O and should use it every night for the whole night. 2. Watching and losing weight. 3. Sleep hygiene with regular time in bed for at least 8 hours. 4. No driving if feeling any sleepiness. 5. I will see the patient for follow up visit to explain the results of the test, recommendations, check compliance with treatment and make any necessary adjustment related to mask fitting, pressure and humidification. Thank you very much for allowing me to participate in the management of your patient. Sincerely, Hao Pitts MD, PhD, FAASM Diplomat of [place] [employer] Sleep Medicine Board of [place] [employer] Assessment Nurse Practitioner of [facility] [place] cc: Deven Jaime MD
== END 2024-03-18 05:22 | disposition home or self-care (01) ==
LOC: 3 N SLEEP 19:06
PROVIDERS: ATTEND Internal Medicine
DX: G47.33 Obstructive sleep apnea (adult) (pediatric) (principal)
CPT/HCPCS: 95811

== ENCOUNTER → 2024-06-24 | Outpatient (CLI) | payer MEDICARE, OTHER ==
[2024-06-24 16:34] VITALS: BP 114/67; PULSE 58; RESP 16; TEMP 97.9
--- NOTE | 2024-06-24 17:09 | P.PROGSL ---
Subjective DATE: 06/24/2024 FOLLOW UP VISIT. Patient with obstructive sleep apnea hypopnea syndrome return to sleep center for follow-up visit. Recently patient had sleep study and explained results of sleep study to the patient in details. Information from previous visit have been reviewed. Patient is using PAP equipment every night for the whole night, getting PAP supplies in time. The patient does not have significant problems with the mask, BPAP unit and humidification. [place] sleepiness scale is significantly increased to 20. I checked information from BPAP unit. BPAP unit pressure maximal inspiratory pressure 20, minimal expiratory pressure 9, pressure support 4, average pressure 19.2/15.3 cm H2O. Usage is 100% and 73% for more then 4 hours, average 5 hours per night. Leak is increased to 34.8 l/m, which is in acceptable range. Apnea Hypopnea Index is borderline 5.7. MEDICATIONS have been reviewed, please see below. During physical exam: GENERAL: A pleasant patient without any distress. VITAL SIGNS: Please see below, weight is 295 lbs. HEENT: PERRLA, EOMI.low position of soft palate, Mallapati 34. NECK: Supple. No JVD. LUNGS: Clear to percussion and to auscultation. Good air exchange. No wheezing or rhonchi. HEART: S1, S2 regular. ABDOMEN: Soft and nontender.[] EXTREMITIES: No clubbing or cyanosis. COMPUTER NUMERICAL CONTROL OPERATOR: Awake, alert, and oriented x3. No focal deficit. Impressions: 1. Severe obstructive sleep apnea-hypopnea syndrome, apnea hypopnea index 55.8. Patient demonstrated great compliance with treatment, benefiting from treatment. 2. Obesity, weight 295 pounds. 3. History of atrial fibrillation. 4. History of hypertension. 5. History of out of dream movements, possibly REM sleep behavioral disorder, no complaints at the present time. 6. Hyperlipidemia. 7. Hypothyroidism. 8. Status post bilateral knee replacement. 9. Status post bilateral shoulder replacement. 10. Status post back fusion. 11. Status post neck fusion. Plan: 1. Continue using PAP equipment every night for the whole night. 2. Sleep hygiene with regular time in bed for at least 7.5-8 hours 3. PAP unit should stay lower then position of the head. 4. Advised patient to remove all remaining water from humidifier canister daily and make it dry after each usage. Refill canister with fresh distilled water before each usage. 5. Watching weight. 6. Precautions related to driving. No driving if feel any sleepiness. 7. I will maintain prescription for PAP supplies including mask, tube, filters. 8. Follow up visit in 8 months or earlier if patient has any problems. Thank you very much for allowing me to participate in the management of your patient. Hao Pitts MD, PhD, FAASM. Diplomat of [place] [employer], Sleep Medicine Board by [employer] Photocopying Equipment Mechanic [facility] [place] Objective - Vital Signs Vital Signs: Vital Signs Temp 97.9 F 06/24/24 16:32 Pulse 58 L 06/24/24 16:32 Resp 16 06/24/24 16:32 BP 114/67 06/24/24 16:32 Pulse Ox 95 06/24/24 16:32 FiO2 Intake & Output 06/23/24 06/24/24 06/24/24 18:59 06:59 18:59 Weight 133.81 kg Home Medications: Home Medications Medication Instructions Recorded Confirmed Type Atorvastatin [Lipitor] 40 mg PO DAILY 04/01/16 01/03/24 History Levothyroxine Sodium [Synthroid] 175 mcg PO DAILY 04/01/16 01/03/24 History rOPINIRole HCL [Requip] 4 mg PO BID 04/01/16 01/03/24 History Pregabalin [Lyrica] 225 mg PO BID 11/25/19 01/03/24 History Butalb/Acetaminophen/Caffeine 1 each PO DIRECTED PRN 10/04/22 10/19/22 History [Hwlwfo-Ohlkqnyn-Lcvb 50-325-40] Cyclobenzaprine [Flexeril] 5 mg PO HS 10/04/22 10/19/22 History Divalproex [Depakote] 250 mg PO TID 10/04/22 01/03/24 History Donepezil HCl [Aricept] 10 mg PO HS 10/04/22 01/03/24 History Furosemide [Lasix] 20 mg PO DAILY 10/04/22 10/19/22 History HYDROcodone/APAP 7.5-325MG [[place] 1 tab PO BID PRN 10/04/22 01/03/24 History 7.5-325] Memantine [Namenda] 5 mg PO BID 10/04/22 01/03/24 History Metoprolol Tartrate [Lopressor] 25 mg PO BID 10/04/22 01/03/24 History Rivaroxaban [Xarelto] 20 mg PO HS 10/04/22 01/03/24 History Cephalexin [Keflex] 500 mg PO BID 1 Days #20 cap 10/06/22 10/19/22 Rx Amiodarone [Cordarone] 100 mg PO BID 10/12/22 01/03/24 History Acetaminophen Tab [Tylenol] 650 mg PO Q6H #30 tab 10/19/22 Rx Docusate [Colace] 100 mg PO BID #20 capsule 10/19/22 Rx Ibuprofen [Motrin] 600 mg PO Q6HR PRN #40 tab 10/19/22 Rx Tamsulosin HCl [Flomax] 0.4 mg PO Q24HR 10/19/22 01/03/24 History oxyCODONE HCL [OxyIR] 5 mg PO Q6H PRN 3 Days #10 tab 10/19/22 Rx
== END ==
LOC: 3 N SLEEP 15:38
PROVIDERS: ATTEND Internal Medicine
DX: G47.33 Obstructive sleep apnea (adult) (pediatric) (principal); E66.9 Obesity, unspecified; I10 Essential (primary) hypertension; E78.5 Hyperlipidemia, unspecified; E03.9 Hypothyroidism, unspecified; Z99.89 Dependence on other enabling machines and devices; Z98.890 Other specified postprocedural states; Z86.79 Personal history of other diseases of the circulatory system; Z79.899 Other long term (current) drug therapy
CPT/HCPCS: 99212

== ENCOUNTER → 2024-11-06 | Outpatient (CLI) | payer MEDICARE, OTHER ==
[2024-11-06 15:53] LABS: ALT 17 U/L (10-49); AST 27 U/L (14-35); Albumin 3.9 g/dL (3.8-4.9); Albumin/Globulin Ratio 1.39 Ratio (1.60-3.17); Alkaline Phosphatase 90 U/L (41-126); BUN/Creat Ratio 27.43 Ratio (12.00-20.00); Blood Urea Nitrogen 19.2 mg/dL (9.0-27.0); Calcium 8.9 mg/dL (8.7-10.3); Carbon Dioxide 24.4 mmol/L (21.6-31.8); Chloride 107 mmol/L (96-109); Chol/HDL Ratio 2.47 Ratio; Globulin 2.8 g/dL (1.6-3.3); Glucose 96 mg/dL (70-110); LDL Cholesterol,Calculated 56.4 mg/dL (0.0-131.0); Potassium 4.1 mmol/L (3.5-5.5); Sodium 143 mmol/L (135-145); Total Protein 6.7 g/dL (6.2-8.2); VLDL Calculation 16.88 mg/dL (5.00-40.00)
[2024-11-06 18:01] LABS: NT-Pro-B-Type Natriuretic Pept 83 pg/mL (0-125)
== END | disposition home or self-care (01) ==
LOC: LABWHC1 11:29
PROVIDERS: ATTEND Internal Medicine Interventional Cardiology
DX: I48.0 Paroxysmal atrial fibrillation (principal); E78.2 Mixed hyperlipidemia; R60.0 Localized edema
CPT/HCPCS: 36415; 80053; 80061; 83880; 84443

== ENCOUNTER → 2024-11-18 | Outpatient (CLI) | payer MEDICARE, OTHER | END | disposition home or self-care (01) | LOC: LABPAT 09:36 | PROVIDERS: ATTEND Orthopaedic Surgery | DX: Z22.322 Carrier or suspected carrier of Methicillin resistant Staphylococcus aureus (principal) | CPT/HCPCS: 86850; 86900; 86901; 87070 ==

== ENCOUNTER 2024-11-26 08:12 | Day surgery (SDC) | payer MEDICARE, OTHER ==
--- NOTE | 2024-11-25 08:17 | P.HPOR ---
History of Present Illness H&P Date: 11/25/24 Chief Complaint: Right shoulder pain and weakness The patient is a 68-year-old male who presents with progressive right shoulder pain and weakness for the past several years. It is worsened over the past year. He is having a difficult time trying to raise his arm over his head. He notes pain with any activity and at night. He has had multiple previous surgeries. He has tried medications in addition to injections without much relief. 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, slight left leg weakness, occasional falls- last fall approx 6 months ago; uses BIPAP History of Any Multi-Drug Resistant Organisms: None Reported Past Surgical History: Back Surgery, Heart Catheterization, Hernia Repair, Joint Replacement, Orthopedic Surgery Additional Past Surgical History / Comment(s): BILAT TKA, BILAT SHOULDER surgery, C-4,5,6 FUSED, BILAT CTR, COLONOSCOPY, CARDIOVERSION 2012, trigger finger repairs Past Anesthesia/Blood Transfusion Reactions: No Reported Reaction Additional Past Anesthesia/Blood Transfusion Reaction / Comment(s): slow to wake from anesthesia Smoking Status: Never smoker - Past Family History Father Family Medical History: Cancer Mother Family Medical History: CVA/TIA, Diabetes Mellitus, Hyperlipidemia, Hypertension, Rheumatoid Arthritis (RA) Additional Family Medical History / Comment(s): sinus headaches, headaches, aneursym passed at 47 years old Sister(s) Additional Family Medical History / Comment(s): epilepsy Medications and Allergies Home Medications Medication Instructions Recorded Confirmed Type Atorvastatin [Lipitor] 40 mg PO DAILY 04/01/16 11/21/24 History Levothyroxine Sodium [Synthroid] 175 mcg PO DAILY 04/01/16 11/21/24 History rOPINIRole HCL [Requip] 4 mg PO BID 04/01/16 11/21/24 History Pregabalin [Lyrica] 225 mg PO BID 11/25/19 11/21/24 History Cyclobenzaprine [Flexeril] 5 mg PO HS 10/04/22 11/21/24 History Divalproex [Depakote] 250 mg PO TID 10/04/22 11/21/24 History Donepezil HCl [Aricept] 10 mg PO HS 10/04/22 11/21/24 History Furosemide [Lasix] 20 mg PO DAILY 10/04/22 11/21/24 History HYDROcodone/APAP 7.5-325MG [[place] 1 tab PO BID PRN 10/04/22 11/21/24 History 7.5-325] Memantine [Namenda] 5 mg PO BID 10/04/22 11/21/24 History Metoprolol Tartrate [Lopressor] 25 mg PO BID 10/04/22 11/21/24 History Amiodarone [Cordarone] 100 mg PO BID 10/12/22 11/21/24 History Tamsulosin HCl [Flomax] 0.4 mg PO DAILY 10/19/22 11/21/24 History oxyCODONE HCL [OxyIR] 5 mg PO Q6H PRN 3 Days #10 tab 10/19/22 11/21/24 Rx Cyanocobalamin (Vitamin B-12) 1,000 mcg PO DAILY 11/21/24 11/21/24 History [Vitamin B-12] Dabigatran [Pradaxa] 150 mg PO BID 11/21/24 11/21/24 History Naproxen [Naprosyn] 500 mg PO BID 11/21/24 11/21/24 History Allergies Allergy/AdvReac Type Severity Reaction Status Date / Time morphine Allergy Nausea & Verified 11/21/24 09:15 Vomiting Physical Examination - Shoulder right Appearance: effusion Tenderness with palpation: anterior, bicipital groove Pain: other (Pain with any attempted range of motion) ROM: forward flexion: 80 degrees ROM: internal rotation: 0 ROM: external rotation: 50 degrees Strength: abduction: 4/5 Strength: external rotation: 4/5 Tests: internal impingement tests: positive, external impingment tests: positive Results The patient is a well-developed well-nourished male approximately 6 foot 1, 305 pounds of endomorphic habitus. HEENT exam is nonfocal, neck is supple. He has tenderness about the right shoulder anterior glenohumeral joint. Moderate crepitus is noted. Passively I am able to forward elevate him to 145 degrees. Wu, Neer sign, and Speed test are positive. His distal neurovascular exam appears intact in the right upper extremity. - Diagnostic results Shoulder x-ray: image reviewed (X-rays of the right shoulder obtained the office show severe glenohumeral joint space narrowing with [id number] changes and subchondral sclerosis. The humeral head to acromial distance is diminished.) Shoulder MRI: image reviewed (MRI report right shoulder shows a large retracted rotator cuff tear with fatty infiltration.) Assessment and Plan Assessment: Right rotator cuff arthropathysevere Obesity Atrial fibrillation Plan: I talked to the patient at length regarding his condition along with treatment options. At this point he has put significant pain and weakness despite conservative measures. After a thorough discussion he opts to proceed with surgery. We will plan to proceed with a right reverse total shoulder arthroplasty. Risks and benefits were discussed at length in layman's terms. We will institute DVT prophylaxis postoperatively.
[~2024-11-26 08:12] MED LIST changes: -ACETAMINOPHEN TAB 500 MG TAB PO PRN; -DEXAMETHASONE SOD PHOSPHATE 4 MG/ML 1 ML VIAL IV ONE; -HEPARIN SODIUM,PORCINE/PF 5,000 UNIT/0.5 ML SYRINGE SQ PRN; -LACTATED RINGERS 1,000 ML IV SCH; -MIDAZOLAM 2 MG/2 ML VIAL IV PRN; -ONDANSETRON 4 MG/2 ML VIAL IVP ONE; -Pre Op ABX Message 1 EACH MISC MISCELLANE ONE; +TRANEXAMIC 1,000 MG/100ML-NACL 1,000 MG in SALINE 1 100ML.BAG IVPB PRN; +fentaNYL (PF) 50 MCG/ML 2 ML AMP IV PRN
[2024-11-26 09:23] LABS: Basophils # (A) 0.09 10*3/uL (0.00-0.10); Basophils % (A) 1.2 %; Eosinophils # (A) 0.22 10*3/uL (0.04-0.35); Eosinophils % (A) 2.9 %; HCT 46.5 % (39.6-50.0); HGB 15.5 g/dL (13.0-17.0); Lymphocytes # (A) 1.88 10*3/uL (0.90-5.00); Lymphocytes % (A) 24.8 %; MCH 31.1 pg (27.0-32.0); MCHC 33.3 g/dL (32.0-37.0); MCV 93.2 fL (80.0-97.0); Mean Platelet Volume 10.5 fL (9.5-12.2); Monocytes # (A) 0.92 10*3/uL (0.20-1.00); Monocytes % (A) 12.2 %; Neutrophils # (A) 4.43 10*3/uL (1.80-7.70); Neutrophils % (A) 58.5 %; Platelet Count 238 10*3/uL (140-440); RBC 4.99 10*6/uL (4.40-5.60); RDW 14.4 % (11.5-14.5); WBC 7.57 10*3/uL (4.50-10.00)
[2024-11-26] MEDS: MELOXICAM 7.5 MG TAB PO PRN (09:25)
[2024-11-26] MEDS: ACETAMINOPHEN TAB 500 MG TAB PO PRN (09:25)
[2024-11-26] MEDS: DEXAMETHASONE SOD PHOSPHATE 4 MG/ML 1 ML VIAL IV ONE (09:26)
[2024-11-26] MEDS: LACTATED RINGERS 1,000 ML IV SCH (09:27)
[2024-11-26] MEDS: fentaNYL (PF) 50 MCG/ML 2 ML AMP IVP PRN (09:38)
[2024-11-26] MEDS: MIDAZOLAM 2 MG/2 ML VIAL IV PRN (09:38)
[2024-11-26 09:40] LABS: INR 1.2 (<1.2); Prothrombin Time 12.7 sec (10.0-12.5)
[2024-11-26 09:53] LABS: African American GFR (CKD) >90 (>60 ml/min/1.73 sqM); Anion Gap 10 mmol/L; Blood Urea Nitrogen 16 mg/dL (9-20); Calcium 9.5 mg/dL (8.4-10.2); Carbon Dioxide 27 mmol/L (22-30); Chloride 106 mmol/L (98-107); Glucose 95 mg/dL (74-99); Non-African American GFR(CKD) >90 (>60 ml/min/1.73 sqM); Sodium 143 mmol/L (137-145)
[2024-11-26] MEDS: IV FLUID CONTINUATION 1,000 ML IV ONE ×2 (09:56→16:35)
[2024-11-26 09:57] LABS: Potassium 4.7 mmol/L (3.5-5.1)
[2024-11-26] MEDS: ONDANSETRON 4 MG/2 ML VIAL IVP ONE (09:59)
[2024-11-26] MEDS ORDERED: NEOSTIGMINE 1 MG/ML 10 ML VIAL ONE (10:00)
[2024-11-26] MEDS ORDERED: SUCCINYLCHOLINE CHLORIDE 200 MG/10 ML VIAL IV ONE (10:00)
[2024-11-26] MEDS ORDERED: MIDAZOLAM 2 MG/2 ML VIAL ONE (10:00)
[2024-11-26] MEDS ORDERED: GLYCOPYRROLATE 0.2 MG/ML 2 ML VIAL ONE (10:00)
[2024-11-26] MEDS ORDERED: TRANEXAMIC 1,000 MG/100ML-NACL PREMIX BAG ONE (10:00)
[2024-11-26] MEDS ORDERED: fentaNYL (PF) 50 MCG/ML 2 ML AMP ONE (10:00)
[2024-11-26] MEDS ORDERED: ePHEDrine 50 MG/ML 1 ML VIAL ONE (10:00)
[2024-11-26] MEDS ORDERED: PROPOFOL 10 MG/ML 20 ML VIAL IV ONE (10:00)
[2024-11-26] MEDS ORDERED: ROPIVACAINE 5 MG/ML 30 ML VIAL ONE (10:00)
[2024-11-26] MEDS ORDERED: ROCURONIUM 10 MG/ML (5 ML VIAL) IV ONE (10:00)
[2024-11-26] MEDS ORDERED: DEXAMETHASONE SOD PHOSPHATE 4 MG/ML 1 ML VIAL ONE (10:00)
[2024-11-26] MEDS ORDERED: PHENYLEPHRINE 10 MG/ML VIAL ONE (10:00)
[2024-11-26] MEDS: ceFAZolin 3 GM in SODIUM CHLORIDE 0.9% 100 ML IVPB PRN (10:03)
[2024-11-26] MEDS: ceFAZolin 1,000 MG in SODIUM CHLORIDE 0.9% 1,000 ML IRRIGATION ONE (10:35)
[2024-11-26] MEDS: LACTATED RINGERS 1,000 ML IV ONE (11:02)
--- NOTE | 2024-11-26 11:03 | P.ANPRN ---
Procedure Note - Anesthesia - Nerve Block Performed Right Interscalene Single Time Out Performed: Yes ([id number]) Date of Procedure: 11/26/24 Procedure Start Time: :39 Procedure Stop Time: :44 Indication: Acute Post-Operative Pain, Requested by Surgeon Specifically requested for management of pain by : Rene Stern Sedation Type: Sedate with meaningful contact maintained Preparation: Sterile Prep Position: Supine Catheter: None Needle Types: Pajunk Needle Gauge: 21 Ultrasound used to visualize needle placement: Yes Ultrasound used to observe medication spread: Yes Injectate: 0.5% Ropivacaine (see comment for volume) (30cc+decadron 4mg) Blood Aspirated: No Pain Paresthesia on Injection Noted: No Resistance on Injection: Normal Image Stored and Saved: Yes Events: Uneventful and Well Tolerated
[2024-11-26] MEDS ORDERED: HYDROmorphone 0.5 MG/0.5 ML SYRINGE IVP PRN (12:11)
[2024-11-26] MEDS ORDERED: SENNOSIDES-DOCUSATE SODIUM 1 EACH TAB PO PRN (12:11)
--- NOTE | 2024-11-26 12:33 | P.OP ---
Date of Procedure: 11/26/24 Preoperative Diagnosis: Right rotator cuff arthropathy/severe glenohumeral joint osteoarthrosis Postoperative Diagnosis: Same Procedure(s) Performed: Right reverse total shoulder arthroplasty Implants: DePuy delta xtend size 10 humeral stem, size 2 epiphysis, 38+9 articular surface, 38 mm glenosphere with standard baseplate. Anesthesia: susu SERRANO Surgeon: Rene Stern [employer] Mechanical #1: Inder Fisher Estimated Blood Loss (ml): 100 Pathology: none sent Condition: stable Disposition: PACU Indications for Procedure: The patient is a 68-year-old male who presents with progressive right shoulder pain secondary to rotator cuff arthropathy and osteoarthrosis despite conservative measures. A discussion of the risks and benefits of operative intervention versus continued conservative measures was made with the patient. He opted to proceed with surgery. Operative risks include infection, neurovascular injury, development of blood clots, fracture, component loosening, instability, possible need for subsequent procedures was discussed. Informed consent was obtained. Operative Findings: As below Description of Procedure: The patient was brought to the operating room, and after induction of general anesthesia was placed in a beachchair position. The bony prominences were appropriately padded. I examined the right shoulder. There was moderate lack of passive forward elevation and external rotation. The right upper extremity was prepped and draped in normal fashion. The bony outlines the coracoid process, distal clavicle, and acromion were outlined with a skin marker. A pulse centimeter deltopectoral incision was made lateral to the coracoid process. Skin was incised sharply. Subcutaneous tissues were divided bluntly. Electrocautery was used for hemostasis. The cephalic vein was identified and gently retracted laterally with the deltoid. The deltopectoral was bluntly developed. Subdeltoid adhesions were then released. The self-retaining retr actor was placed. The conjoined tendon was retracted medially and the deltoid laterally. The biceps was identified. Its sheath was opened. A biceps tenotomy was performed along the remaining tendon did retract distally. Pseudocapsule was excised. The head was then exposed. The shoulder was dislocated. A starting hole was made in line with the humeral shaft. The canal was reamed by hand up to size 10. There was good distal chatter. The cutting guide was then placed. I planned on 20 of retroversion. The humeral head cut was then made. The bone was removed in one fragment. Residual inferomedial osteophytes were removed flush with the [place] cortical bone. Attention was then paid towards preparing the glenoid. An anterior and posterior retractors placed. The labrum was released from the 12-6 o'clock position. Remaining biceps was removed as well. A guidepin was placed in the inferior aspect of the glenoid with the guide slightly tilting inferior. The reamer was used down to a bleeding bony surface. The central peg hole was drilled. The standard baseplate was inserted with good purchase. Inferior, superior, and posterior locking screws the appropriate length were placed. Good purchase was obtained. The 38 mm glenosphere was inserted over a guidewire. This was fully seated. Care was taken to avoid any soft tissue interposition. Attention was then paid towards preparing the proximal humerus. The appropriate broach was placed and 20 of retroversion and was fully seated. An eccentric size 2 epiphyseal reamer was utilized. A size 10 stem with a size 2 epiphysis was placed and 20 of retroversion. Trial reduction was obtained with a 38 mm + 9 articular surface. The shoulder was taken through range of motion. The shoulder was felt to be stable in flexion and extension with internal and external rotation. I felt there was adequate [place] of soft tissue tension judging off the conjoined tendon. The shoulder was gently dislocated. The trial components were then removed. The final size 10 press-fit stem along with a size 2 epiphysis was fully seated. There was good rotational stability. The 38 mm + 9 articular surface was impacted. The shoulder again was gently reduced and taken through range of motion. Again it was felt to be stable in all planes. Pulsatile lavage was utilized. The subscapularis was a attached to the lesser tuberosity with #2 Ethibond suture. The deltopectoral interval was closed with interrupted 2-0 Vicryl sutures. The skin was reapproximated with 3-0 subcuticular Prolene suture. Steri-Strips were applied. A sterile dressing was applied. A sling was placed. The patient was awoken from general anesthesia and transferred to recovery room in good condition. Blood loss was estimated at 100 mL. No complications were incurred. Sponge and needle counts were correct at the end the case. Inder BA assisted during the major components of the case to include exposure, glenoid and humeral preparation, implantation, and closure.
--- NOTE | 2024-11-26 13:03 | XR ---
EXAMINATION TYPE: XR shoulder limited RT DATE OF EXAM: 11/26/2024 12:51 PM COMPARISON: None CLINICAL INDICATION: Male, 68 years old with history of s/p reverse right total shoulder arthroplasty ; PHH, pain TECHNIQUE: Single AP view FINDINGS: Image shows placement of reverse right total shoulder arthroplasty. Alignment appears appropriate. So ft tissue air and intra-articular air related to operation. Interstitial changes in the visualized ri ght lung. There are posttraumatic or postsurgical widening of the AC joint. IMPRESSION: 1. Uncomplicated postoperative appearance of the reverse right total shoulder arthroplasty. 2. Either postoperative or posttraumatic widening of the AC joint. 3. Interstitial changes in the visualized right lung. If any changes in patient's respiratory status, consider dedicated chest radiographs to exclude developing infiltrates or CHF. [facility], , 11/26/2024 1:01 PM
[2024-11-26] MEDS: HYDROmorphone 0.5 MG/0.5 ML SYRINGE IVP PRN ×2 (13:06→20:05)
[2024-11-26] MEDS: ceFAZolin 3 GM in SODIUM CHLORIDE 0.9% 100 ML IVPB SCH (18:08)
[2024-11-26] MEDS: CYCLOBENZAPRINE 10 MG TAB PO SCH (20:05)
[2024-11-26] MEDS: PREGABALIN 75 MG CAP PO SCH (20:05)
[2024-11-26] MEDS: DABIGATRAN 150 MG CAP PO SCH (20:05)
[2024-11-26] MEDS: HYDROcodone/APAP 7.5-325MG 1 EACH TAB PO PRN (23:43)
[2024-11-27 03:28] LABS: Basophils # (A) 0.02 10*3/uL (0.00-0.10); Basophils % (A) 0.2 %; HCT 40.3 % (39.6-50.0); HGB 13.1 g/dL (13.0-17.0); Lymphocytes # (A) 0.94 10*3/uL (0.90-5.00); Lymphocytes % (A) 8.2 %; MCH 30.4 pg (27.0-32.0); MCHC 32.5 g/dL (32.0-37.0); MCV 93.5 fL (80.0-97.0); Mean Platelet Volume 10.7 fL (9.5-12.2); Monocytes # (A) 1.29 10*3/uL (0.20-1.00); Monocytes % (A) 11.2 %; Neutrophils # (A) 9.19 10*3/uL (1.80-7.70); Neutrophils % (A) 79.9 %; Platelet Count 224 10*3/uL (140-440); RBC 4.31 10*6/uL (4.40-5.60); RDW 14.2 % (11.5-14.5)
[2024-11-27] MEDS: oxyCODONE-APAP 5-325MG 1 EACH TAB PO PRN (07:32)
[2024-11-27] MEDS: hydrOXYzine pamoate 25 MG CAP PO PRN (07:32)
[2024-11-27 08:25] VITALS: BP 144/71; PULSE 59; RESP 18; TEMP 98
--- NOTE | 2024-11-27 11:35 | P.DS ---
Providers Date of admission: 11/26/2024 Expected date of discharge: 11/27/24 Attending physician: Rene Stern Consults: 11/26/24 17:48 Consult Physician Routine Consulting Provider: Josette Laurent Consult Reason/Comments: medical management Do you want consulting provider notified?: Already Contacted Primary care physician: Deven Jaime Hospital Course: Date of admission: 11/26/2024 Date of discharge: 11/27/2024 Admission diagnosis: Right rotator cuff arthropathy/severe glenohumeral joint osteoarthrosis Discharge diagnosis: Same Attending physician: Dr. Stern Surgical procedures: Reverse right total shoulder arthroplasty Brief history: Patient is a 68-year-old male with a history of Right rotator cuff arthropathy/severe glenohumeral joint osteoarthrosis. At this point patient has failed conservative treatment measures and has opted to proceed with a elective reverse right total shoulder arthroplasty. Hospital course: Details of patient's surgery can be found in operative report. Patient tolerated the procedure well and was subsequently transported to orthopedic floor. Patient's orthopeidc and medical care was provided daily. Patient had daily laboratory tests performed for evaluation of overall blood counts. Patient had daily physical therapy to include strengthening range of motion as well as education with walker ambulation. Patient was treated with dabigatran for their postoperative DVT prophylaxis during their inpatient stay. Patient was noted to have a relatively uneventful postoperative course. Patient reported satisfactory pain control with oral pain medications by postoperative day 1. Patient showed satisfactory progress with physical therapy. Patient moved steadily through the program and had no difficulty meeting the goals by po stoperative day 1. Given patient's otherwise satisfactory course and having met physical therapy goals, plan is to discharge patient home on postoperative day 1. Discharge condition/disposition: Patient will be discharged home in stable condition. Discharge medications: Instructions are given on resumption of patient's normal daily medications per primary care recommendation, in addition patient will be prescribed Percocet; Vistaril; senna; resume Pradaxa at home. Orthopedic Discharge Instructions: 1. Wound care and infection precautions, keep incision dry and covered while showering, no lotions, creams, moisturizers. No soaking, pools, hot tubs. Do not scrub over incision. 2. Nonweightbearing right upper extremity until follow-up. 3. Ice when necessary. Do not exceed 20 minutes per hour with ice pack. 4. Utilize sling to right upper extremity until seen at first follow up appointment. 5. Pain meds and anticoagulants per prescription. 6. Pain medication has potential to cause constipation. Increase oral fluid and fiber intake. Contact primary care provider if you have not had a bowel movement within 48 hours after discharge. 7. No anti-inflammatory medication until discussed at first post operative visit, this including Motrin, Aleve, Mobic, Diclofenac. 8. Follow up in office at 2 weeks postop with Duke Alvarez PA-C / Inder Fisher PA-C 9. Follow up with your primary care doctor 7-10 days after discharge. 10. Contact [facility] with any questions, . Keep incision clean, dry, intact. While showering, cover Steri-Strips/dressing with Saran wrap. Keep Steri-Strips on until follow-up appointment in office in 2 weeks Assessment: Right rotator cuff arthropathy/severe glenohumeral joint osteoarthrosis Procedures: Reverse right total shoulder arthroplasty Patient Condition at Discharge: Good Plan - Discharge Summary Discharge Rx Participant: No New Discharge Prescriptions: New oxyCODONE-APAP 5-325MG [Percocet 5-325 mg] 1 tab PO Q6HR PRN #28 tab PRN Reason: Pain Sennosides/Docusate Sodium [Senna Plus 8.6-50 mg Softgel] 1 each PO DAILY #20 capsule hydrOXYzine pamoate [Vistaril] 25 mg PO TID PRN #21 cap PRN Reason: Pain Continue Pregabalin [Lyrica] 225 mg PO BID Dabigatran [Pradaxa] 150 mg PO BID Cyclobenzaprine [Flexeril] 5 mg PO HS Discontinued HYDROcodone/APAP 7.5-325MG [[place] 7.5-325] 1 tab PO BID PRN PRN Reason: Pain oxyCODONE HCL [OxyIR] 5 mg PO Q6H PRN 3 Days #10 tab PRN Reason: Pain No Action rOPINIRole HCL [Requip] 4 mg PO BID Levothyroxine Sodium [Synthroid] 175 mcg PO DAILY Atorvastatin [Lipitor] 40 mg PO DAILY Memantine [Namenda] 5 mg PO BID Divalproex [Depakote] 250 mg PO TID Furosemide [Lasix] 20 mg PO DAILY Donepezil HCl [Aricept] 10 mg PO HS Cyanocobalamin (Vitamin B-12) [Vitamin B-12] 1,000 mcg PO DAILY Naproxen [Naprosyn] 500 mg PO BID Metoprolol Tartrate [Lopressor] 25 mg PO BID Amiodarone [Cordarone] 100 mg PO BID Tamsulosin HCl [Flomax] 0.4 mg PO DAILY Discharge Medication List Atorvastatin [Lipitor] 40 mg PO DAILY 04/01/16 [History] Levothyroxine Sodium [Synthroid] 175 mcg PO DAILY 04/01/16 [History] rOPINIRole HCL [Requip] 4 mg PO BID 04/01/16 [History] Pregabalin [Lyrica] 225 mg PO BID 11/25/19 [History] Cyclobenzaprine [Flexeril] 5 mg PO HS 10/04/22 [History] Divalproex [Depakote] 250 mg PO TID 10/04/22 [History] Donepezil HCl [Aricept] 10 mg PO HS 10/04/22 [History] Furosemide [Lasix] 20 mg PO DAILY 10/04/22 [History] Memantine [Namenda] 5 mg PO BID 10/04/22 [History] Metoprolol Tartrate [Lopressor] 25 mg PO BID 10/04/22 [History] Amiodarone [Cordarone] 100 mg PO BID 10/12/22 [History] Tamsulosin HCl [Flomax] 0.4 mg PO DAILY 10/19/22 [History] Cyanocobalamin (Vitamin B-12) [Vitamin B-12] 1,000 mcg PO DAILY 11/21/24 [History] Dabigatran [Pradaxa] 150 mg PO BID 11/21/24 [History] Naproxen [Naprosyn] 500 mg PO BID 11/21/24 [History] Sennosides/Docusate Sodium [Senna Plus 8.6-50 mg Softgel] 1 each PO DAILY #20 capsule 11/27/24 [Rx] hydrOXYzine pamoate [Vistaril] 25 mg PO TID PRN #21 cap 11/27/24 [Rx] oxyCODONE-APAP 5-325MG [Percocet 5-325 mg] 1 tab PO Q6HR PRN #28 tab 11/27/24 [Rx] Follow up Appointment(s)/Referral(s): Inder Fisher, DEVORA [PHYSICIAN LINING CLOSER] - 2 Weeks Patient Instructions/Handouts: Shoulder Arthroplasty (GEN) Activity/Diet/Wound Care/Special Instructions: Orthopedic Discharge Instructions: 1. Wound care and infection precautions, keep incision dry and covered while showering, no lotions, creams, moisturizers. No soaking, pools, hot tubs. Do not scrub over incision. 2. Nonweightbearing right upper extremity until follow-up. 3. Ice when necessary. Do not exceed 20 minutes per hour with ice pack. 4. Utilize sling to right upper extremity until seen at first follow up appointment. 5. Pain meds and anticoagulants per prescription. 6. Pain medication has potential to cause constipation. Increase oral fluid and fiber intake. Contact primary care provider if you have not had a bowel movement within 48 hours after discharge. 7. No anti-inflammatory medication until discussed at first post operative visit, this including Motrin, Aleve, Mobic, Diclofenac. 8. Follow up in office at 2 weeks postop with Duke Alvarez PA-C / Inder Fisher PA-C 9. Follow up with your primary care doctor 7-10 days after discharge. 10. Contact [facility] with any questions, . Keep incision clean, dry, intact. While showering, cover Steri-Strips/dressing with Saran wrap. Keep Steri-Strips on until follow-up appointment in office in 2 weeks Discharge Disposition: HOME SELF-CARE
--- NOTE | 2024-11-27 11:56 | P.PN ---
Subjective Progress Note Date: 11/27/24 Principal diagnosis: Right rotator cuff arthropathy/severe glenohumeral joint osteoarthrosis Patient was seen at bedside this morning lying in the semirecumbent position with sling present to right upper extremity and bulky dressing present over right shoulder. Patient states his pain has been controlled with oral medications since surgery yesterday. He says he has been urinating on his own without issue. Patient is hoping go home later today. He denies any other issues at this time. Objective - Vital Signs Vital signs: Vital Signs Temp 98.0 F 11/27/24 07:41 Pulse 59 L 11/27/24 07:41 Resp 18 11/27/24 07:41 BP 144/71 11/27/24 07:41 Pulse Ox 92 L 11/27/24 07:41 FiO2 Intake & Output 11/26/24 11/27/24 11/27/24 18:59 06:59 18:59 Intake Total 2751 Output Total 100 Balance 2651 Weight 129.5 kg Intake: IV 2751 Output: Estimated Blood Loss 100 Other: Voiding Method Urinal Urinal # Voids 1 2 1 - Exam Right shoulder: Incision is clean, dry, and intact. The bulky dressing is in good condition. There is minimal soft tissue swelling and ecchymosis surrounding the medial and lateral aspects of the incision. Calf is soft, no tenderness with palpation. Plantar flexion, dorsiflexion, EHL, FHL are intact. Sensory exam to light touch throughout the extremity is intact, dorsal pedis pulses 2+. - Labs CBC & Chem 7: 11/27/24 02:38 11/26/24 09:10 Labs: Abnormal Lab Results - Last 24 Hours (Table) 11/27/24 Range/Units 02:38 WBC 11.50 H (4.50-10.00) 10*3/uL RBC 4.31 L (4.40-5.60) 10*6/uL Immature Gran # 0.06 H (0.00-0.04) 10*3/uL Neutrophils # 9.19 H (1.80-7.70) 10*3/uL Monocytes # 1.29 H (0.20-1.00) 10*3/uL Eosinophils # 0.00 L (0.04-0.35) 10*3/uL Assessment and Plan Assessment: 1. Right rotator cuff arthropathy/severe glenohumeral joint osteoarthrosis - Postop day 1 status post reverse right total shoulder arthroplasty Plan: 1. Right rotator cuff arthropathy/severe glenohumeral joint osteoarthrosis - reverse right total shoulder arthroplasty performed yesterday, 11/26/2024. Patient stable bedside's morning with sling present to right upper extremity. Pain under control with oral medication. Discharge home today with home care. 2. Appreciate medical management 3. Pain management -Percocet; Vistaril 4. DVT prophylaxis -Pradaxa 5. GI prophylaxis -senna 6. PT/OT -nonweightbearing right upper extremity. Maintain in sling 7. Encourage incentive spirometer use 8. Discharge planning -discharge home today Time with Patient: Less than 30
--- NOTE | 2024-11-28 09:15 | CONS ---
CONSULTATION REASON FOR CONSULTATION: Regarding atrial fibrillation, other medical issues, HISTORY OF PRESENT ILLNESS: This is a 68-year-old gentleman with past medical history of atrial fibrillation, CVA, dementia, hypertension, hyperlipidemia, had a right shoulder arthroplasty. There is no history of any fever or loss of consciousness at this time with no chest pain or palpitations either. PAST MEDICAL HISTORY: Reviewed. Atrial fibrillation, dementia. Rest of the history and chart is also reviewed. HOME MEDICATIONS: Reviewed and reported. Doses and rest of medications reviewed. ALLERGIES: Morphine. FAMILY HISTORY: History of CAD. SOCIAL HISTORY: No history of smoking or alcohol. REVIEW OF SYSTEMS: A 14-point review of systems is negative except as mentioned earlier PHYSICAL EXAMINATION: VITAL SIGNS: Pulse is 59, blood pressure 140/74, and respirations 18. HEENT: Conjunctivae normal. NECK: No jugular venous distention. CARDIOVASCULAR: S1, S2. RESPIRATIONS: Breath sounds diminished at the bases. ABDOMEN: Soft. LEGS: No edema. No cyanosis. NERVOUS SYSTEM: No focal deficit. SKIN: No ulceration. LABORATORY DATA: Reviewed. ASSESSMENT: 1. Status post right shoulder arthroplasty. 2. History of atrial fibrillation. 3. Dementia. 4. Hypertension. 5. Hyperlipidemia. 6. History of DJD. 7. History of sleep apnea, on CPAP. 8. Back surgery. 9. History of multiple complex medical issues. RECOMMENDATIONS AND DISCUSSION: This 68-year-old gentleman who underwent surgery yesterday, is medically stable, so to resume the home medications. Continue the same home medications at home. DVT prophylaxis. Incentive spirometry. Closely follow with the primary physician. We will follow the patient closely with you. ALVARADO / ESTEBANN: [id number] / SWEETIE
== END 2024-11-27 14:02 | disposition home or self-care (01) ==
LOC: OR 08:12 → 4SSUR 12:23 → OR 11-27 14:02
PROVIDERS: ATTEND Orthopaedic Surgery
DX: M19.011 Primary osteoarthritis, right shoulder (principal); M75.101 Unspecified rotator cuff tear or rupture of right shoulder, not specified as traumatic; G89.18 Other acute postprocedural pain; I10 Essential (primary) hypertension; N40.1 Benign prostatic hyperplasia with lower urinary tract symptoms; E03.9 Hypothyroidism, unspecified; I48.0 Paroxysmal atrial fibrillation; I42.8 Other cardiomyopathies; G47.33 Obstructive sleep apnea (adult) (pediatric); F03.90 Unspecified dementia, unspecified severity, without behavioral disturbance, psychotic disturbance, mood disturbance, and anxiety; E66.9 Obesity, unspecified; E78.00 Pure hypercholesterolemia, unspecified; M54.9 Dorsalgia, unspecified; F41.9 Anxiety disorder, unspecified; Z79.899 Other long term (current) drug therapy; Z79.02 Long term (current) use of antithrombotics/antiplatelets; Z79.890 Hormone replacement therapy; Z98.890 Other specified postprocedural states; Z86.73 Personal history of transient ischemic attack (TIA), and cerebral infarction without residual deficits; Z87.891 Personal history of nicotine dependence; Z96.653 Presence of artificial knee joint, bilateral; Z88.5 Allergy status to narcotic agent
CPT/HCPCS: 23472; 64415; 80048; 85025 ×2; 85610; 73020; C1776; J2250; J0330; J1100; J2710; J0690 ×3; J3010; J2795; J2704; J1171 ×2; J2371; J1596

== ENCOUNTER 2024-12-12 12:46 | Day surgery (SDC) | payer MEDICARE, OTHER | END 2024-12-12 23:59 | disposition other institution (70) | LOC: OR 12:46 | PROVIDERS: ATTEND Orthopaedic Surgery | DX: T84.028A Dislocation of other internal joint prosthesis, initial encounter (principal); I48.91 Unspecified atrial fibrillation; Z86.73 Personal history of transient ischemic attack (TIA), and cerebral infarction without residual deficits; I10 Essential (primary) hypertension; E78.5 Hyperlipidemia, unspecified | CPT/HCPCS: 80053; 85025; 85610; 73020; 73030; 23473; C1776; J1100; J0690; J2405; J2003; J3010; J1171 ×2 ==

== ENCOUNTER 2024-12-16 15:41 | Inpatient (IN) | payer MEDICARE, OTHER ==
[2024-12-11 11:16] VITALS: BMI 38.7
--- NOTE | 2024-12-11 13:01 | P.HPOR ---
History of Present Illness H&P Date: 12/11/24 Chief Complaint: Right shoulder pain Patient presented to 2-week postop visit status post reverse right total shoulder arthroplasty. Patient had reverse right total shoulder arthroplasty surgery performed by Dr. Stern on 11/26/2024. Postoperative films did show total shoulder arthroplasty components in good position and stable. Patient was then discharged home on postop day 2 from right shoulder surgery. Patient re- presented to the hospital on 11/28/2024 due to having some postoperative weakness and also some episodes where patient did fall. Patient does have a chronic history of back issues. Patient was then worked up in the hospital in regards to his back and did end up having spine surgery in the form of open treatment of L1-2 fracture; L1-2 and L2-3 posterior lateral interbody fusion on 11/30/[address] Ibanez. Patient recovered for several days in the hospital after spine surgery and was then discharged to [facility] for rehab on 12/05/2024. Patient presented to the office today for his 2-week follow-up from his reverse right total shoulder arthroplasty. X-ray films in the office did reveal dislocation of the total shoulder components. The patient notes he fell last week. He has had some increased pain. I did discuss with patient and at bedside this morning the possible options for treatment and they are in agreement with the plan of surgery for a closed reduction internal fixation versus possible open reduction with possible revision reverse right total shoulder arthroplasty. Patient are in agreement at this time and surgery has been scheduled for tomorrow, , 12/12/2024. 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 Currently at [facility], able to take a few steps only, otherwise in a wheelchair. Had right shoulder replacement 11/26/24, then fell and hurt his back, had L1-L2 fusion with revision of L2-L3 fusion on 11/30/24, spouse states his shoulder got messed up during his back surgery so now has to have surgery on it again. History of Any Multi-Drug Resistant Organisms: None Reported Past Surgical History: Back Surgery, Heart Catheterization, Hernia Repair, Joint Replacement, Orthopedic Surgery Additional Past Surgical History / Comment(s): BILATERAL TOTAL KNEE REPLACEMENTS, BILATERAL SHOULDER REPLACEMENTS, C4-C5-C6 FUSION, L2-L3 FUSION, BILATERAL CARPAL TUNNEL RELEASE, COLONOSCOPY, CARDIOVERSION 2012, TRIGGER FINGER RELEASES, L1-L2 FUSION, REVISION OF L2-L3 FUSION, Past Anesthesia/Blood Transfusion Reactions: No Reported Reaction Additional Past Anesthesia/Blood Transfusion Reaction / Comment(s): Slow to wake from anesthesia. Smoking Status: Never smoker - Past Family History Father Family Medical History: Cancer Mother Family Medical History: CVA/TIA, Diabetes Mellitus, Hyperlipidemia, Hypertension, Rheumatoid Arthritis (RA) Additional Family Medical History / Comment(s): Sinus headaches, headaches, aneursym passed at 47 years old. Sister(s) Additional Family Medical History / Comment(s): Epilepsy. Medications and Allergies Home Medications Medication Instructions Recorded Confirmed Type Cyclobenzaprine [Flexeril] 5 mg PO HS 10/04/22 12/11/24 History Divalproex [Depakote] 250 mg PO TID 10/04/22 12/11/24 History Furosemide [Lasix] 20 mg PO DAILY 10/04/22 12/11/24 History Memantine [Namenda] 5 mg PO BID 10/04/22 12/11/24 History Amiodarone [Cordarone] 100 mg PO BID 10/12/22 12/11/24 History Tamsulosin HCl [Flomax] 0.4 mg PO DAILY 10/19/22 12/11/24 History hydrOXYzine pamoate [Vistaril] 25 mg PO TID PRN #21 cap 11/27/24 12/11/24 Rx Levothyroxine Sodium [Synthroid] 175 mcg PO DAILY 11/28/24 12/11/24 History Sennosides/Docusate Sodium [Senna 1 cap PO DAILY 11/28/24 12/11/24 History Plus 8.6-50 mg Softgel] rOPINIRole HCL 8 mg PO HS 11/28/24 12/11/24 History rOPINIRole HCL [Requip] 4 mg PO QAM 11/28/24 12/11/24 History Pregabalin [Lyrica] 225 mg PO BID 5 Days #10 cap 12/05/24 12/11/24 Rx oxyCODONE-APAP 5-325MG [Percocet 1 tab PO Q6HR PRN 7 Days #28 tab 12/05/24 12/11/24 Rx 5-325 mg] Atorvastatin Calcium 40 mg PO HS 12/11/24 12/11/24 History Cyanocobalamin [Vitamin B-12] 1,000 mcg PO DAILY 12/11/24 12/11/24 History Lactulose [Cephulac] 15 ml PO BID 12/11/24 12/11/24 History Metoprolol Tartrate 25 mg PO BID 12/11/24 12/11/24 History Tuberculin Ppd (Skin Test) 1 dose INTRADERMA FR 12/11/24 12/11/24 History [Tubersol] polyethylene glycoL 3350 [Miralax] 17 gm PO DAILY PRN 12/11/24 12/11/24 History Allergies Allergy/AdvReac Type Severity Reaction Status Date / Time morphine AdvReac Nausea & Verified 12/11/24 10:36 Vomiting Physical Examination Appearance: effusion Tenderness with palpation: anterior, bicipital groove Pain: other (Pain with any attempted range of motion) ROM: forward flexion: 30 degrees Strength: abduction: 2/5 Strength: external rotation: 2/5 Tests: internal impingement tests: positive, external impingment tests: positive Results - Diagnostic results Shoulder x-ray: report reviewed, image reviewed (Shoulder x-rays reveal dislocation of right shoulder components. Negative for any fractures.) Assessment and Plan Assessment: 1. Right shoulder dislocation -history of recent reverse right total shoulder arthroplasty; history of recent spine surgery Plan: Plan: Right shoulder dislocation -history of recent reverse right total shoulder arthroplasty; history of recent spine surgery - Shoulder x-rays reveal dislocation of right shoulder components. Negative for any fractures. I did discuss with patient and at bedside this morning the possible options for treatment and they are in agreement with the plan of surgery for a closed reduction internal fixation versus possible open reduction internal fixation and possible revision reverse right total shoulder arthroplasty. Patient are in agreement at this time and surgery has been scheduled for tomorrow, , 12/12/2024. Patient and are aware of the risk and benefits of the procedure. Patient to be n.p.o. at midnight tonight. We will start DVT ppx post-operatively. Time with Patient: Less than 30
[2024-12-12] MEDS: IV FLUID CONTINUATION 1,000 ML IV ONE ×2 (08:53→12:23)
[2024-12-12] MEDS: ACETAMINOPHEN TAB 500 MG TAB PO PRN (09:22)
[2024-12-12] MEDS: MELOXICAM 7.5 MG TAB PO PRN (09:23)
[2024-12-12] MEDS: DEXAMETHASONE SOD PHOSPHATE 4 MG/ML 1 ML VIAL IV ONE (09:25)
[2024-12-12] MEDS: ONDANSETRON 4 MG/2 ML VIAL IVP ONE (09:26)
[2024-12-12 09:38] LABS: Basophils # (A) 0.09 10*3/uL (0.00-0.10); Basophils % (A) 0.9 %; Eosinophils # (A) 0.18 10*3/uL (0.04-0.35); Eosinophils % (A) 1.7 %; HGB 12.3 g/dL (13.0-17.0); Lymphocytes # (A) 1.15 10*3/uL (0.90-5.00); Lymphocytes % (A) 11.1 %; MCH 30.1 pg (27.0-32.0); MCHC 32.4 g/dL (32.0-37.0); MCV 93.1 fL (80.0-97.0); Mean Platelet Volume 9.4 fL (9.5-12.2); Monocytes # (A) 0.94 10*3/uL (0.20-1.00); Monocytes % (A) 9.1 %; Neutrophils % (A) 75.6 %; RBC 4.08 10*6/uL (4.40-5.60); WBC 10.33 10*3/uL (4.50-10.00)
[2024-12-12 09:51] LABS: Platelet Count 484 10*3/uL (140-440)
[2024-12-12 09:55] LABS: ALT 25 U/L (4-49); African American GFR (CKD) >90 (>60 ml/min/1.73 sqM); Albumin 3.2 g/dL (3.5-5.0); Anion Gap 8 mmol/L; Blood Urea Nitrogen 15 mg/dL (9-20); Calcium 8.7 mg/dL (8.4-10.2); Carbon Dioxide 29 mmol/L (22-30); Chloride 100 mmol/L (98-107); Glucose 97 mg/dL (74-99); Non-African American GFR(CKD) >90 (>60 ml/min/1.73 sqM); Sodium 137 mmol/L (137-145); Total Bilirubin 1.1 mg/dL (0.2-1.3); Total Protein 6.9 g/dL (6.3-8.2)
[2024-12-12 09:57] LABS: INR 1.2 (<1.2)
[2024-12-12 10:07] LABS: AST 49 U/L (17-59); Alkaline Phosphatase 102 U/L (38-126); Potassium 4.7 mmol/L (3.5-5.1)
[2024-12-12] MEDS: ceFAZolin 3 GM in SODIUM CHLORIDE 0.9% 100 ML IVPB PRN (10:33)
--- NOTE | 2024-12-12 11:11 | FL ---
EXAMINATION TYPE: FL guidance operating room, XR shoulder limited RT DATE OF EXAM: 12/12/2024 CLINICAL HISTORY: Dislocation. TECHNIQUE: Fluoroscopy. Intraoperative limited views right shoulder. COMPARISON: None. FINDINGS: Fluoroscopic guidance was provided during closed reduction procedure performed by Dr. Mati renteria A total of 3.0 seconds of fluoroscopic time was utilized during the procedure and 1 spot images w as acquired. Total dose area product (DAP) in uGy*m?, mGy*cm? (or similar: 0.1069. Single image acquired shows metallic hardware from reverse shoulder arthroplasty. IMPRESSION: As Above. [facility], , 12/12/2024 11:08 AM
[2024-12-12] MEDS: LACTATED RINGERS 1,000 ML IV ONE (12:16)
--- NOTE | 2024-12-12 12:23 | P.OP ---
Date of Procedure: 12/12/24 Preoperative Diagnosis: Right reverse total shoulder arthroplasty dislocation Postoperative Diagnosis: Same Procedure(s) Performed: Attempted closed reduction right reverse total shoulder dislocation Revision right total shoulder arthroplastyopen reduction Implants: DePuy 38+12 articular surface Anesthesia: MAGGIE Surgeon: Rene Stern Sports Information Director #1: Ryan Alvarez Estimated Blood Loss (ml): 100 Pathology: none sent Condition: stable Disposition: PACU Indications for Procedure: The patient is a 69-year-old male who presents after undergoing a right reverse total shoulder arthroplasty approximately 2 weeks ago with increasing pain after multiple falls. Clinically he was noted to have dislocation of the reverse total shoulder arthroplasty. A discussion of the risks and benefits of attempted closed reduction versus open reduction and possible revision was discussed. Informed consent was obtained. Specific risks of surgery to include infection, neurovascular injury, development of blood clots, possible recurrent instability, and possible need for subsequent procedures was discussed. Informed consent was obtained. Operative Findings: As below Description of Procedure: The patient was brought to the operating room, and after induction of general anesthesia I attempted to reduce his right shoulder dislocation with the aid of fluoroscopy and traction. I was unable to obtain this. It was elected to proceed with open reduction with possible revision. The bony prominences were appropriately padded. The previous deltopectoral incision was utilized. Skin was incised sharply. Subcutaneous tissues were divided bluntly. Electrocautery was used for hemostasis. The cephalic vein was identified and gently retracted laterally with the deltoid. The deltopectoral was bluntly developed. Subdeltoid adhesions were then released. The self-retaining retractor was placed. The conjoined tendon was retracted medially and the deltoid laterally. The previous subscap repair was noted to be intact. This was released off the lesser tuberosity and tagged with #2 Ethibond suture. I was unable to reduce the shoulder at this point. The articular surface was removed. The glenosphere was inspected and felt to be stable. Good alignment was noted. The humeral component was well-fixed. A trial 12 mm articular surface was placed and the shoulder was then reduced. It was stable in both flexion and extension with internal and external rotation. Pulsatile lavage was utilized. The subscapularis was a attached to the lesser tuberosity with #2 Ethibond suture. The deltopectoral interval was closed with interrupted 2-0 Vicryl sutures. The skin was reapproximated with 3-0 subcuticular Prolene suture. Steri-Strips were applied. A sterile dressing was applied. A sling was placed. The patient was awoken from general anesthesia and transferred to recovery room in fair condition. Blood loss was estimated at 100 mL. No complications were incurred. Sponge and needle counts were correct at the end the case. Duke BA assisted during the major components of the case to include exposure, glenoid and humeral preparation, implantation, and closure.
[2024-12-12] MEDS: HYDROmorphone 0.5 MG/0.5 ML SYRINGE IVP PRN ×2 (12:49→15:35)
--- NOTE | 2024-12-12 12:50 | XR ---
EXAMINATION TYPE: XR shoulder complete RT DATE OF EXAM: 12/12/2024 CLINICAL INDICATION: Male, 69 years old with history of s/p revision reverse right total shoulder art hropl, pain TECHNIQUE: Single view of the right shoulder is obtained immediately postoperatively. COMPARISON: Right shoulder x-ray earlier today and older study November 28, 2024 FINDINGS: There is metallic hardware from total reverse shoulder arthroplasty redemonstrated. Alignm ent is satisfactory after closed reduction. Some surrounding gas is noted inferiorly. IMPRESSION: As above. [facility], , 12/12/2024 12:48 PM
[2024-12-12] MEDS: LACTATED RINGERS 1,000 ML IV SCH (15:31)
[2024-12-12] MEDS: DIVALPROEX 250 MG TABLET.DR PO SCH (16:56)
[2024-12-12] MEDS: ceFAZolin 3 GM in SODIUM CHLORIDE 0.9% 100 ML IVPB SCH (16:56)
[2024-12-12] MEDS: ATORVASTATIN 40 MG TAB PO SCH (21:03)
[2024-12-12] MEDS: METOPROLOL TARTRATE 25 MG TAB PO SCH (21:03)
[2024-12-12] MEDS: MEMANTINE 5 MG TAB PO SCH (21:03)
[2024-12-12] MEDS: LACTULOSE 20 GM/30 ML CUP PO SCH (21:03)
[2024-12-12] MEDS: CYCLOBENZAPRINE 5 MG TAB PO SCH (21:03)
[2024-12-12] MEDS: PREGABALIN 75 MG CAP PO SCH (21:04)
[2024-12-12] MEDS: AMIODARONE 100 MG TAB PO SCH (21:05)
[2024-12-13] MEDS: oxyCODONE-APAP 5-325MG 1 EACH TAB PO PRN (02:16)
[2024-12-13] MEDS: hydrOXYzine pamoate 25 MG CAP PO PRN (05:53)
[2024-12-13] MEDS: LEVOTHYROXINE 100 MCG TAB PO SCH (05:54)
[2024-12-13] MEDS: LEVOTHYROXINE 75 MCG TAB PO SCH (05:54)
[2024-12-13 08:22] LABS: Basophils # (A) 0.07 X 10*3/uL (0.00-0.10); Basophils % (A) 0.6 %; Eosinophils # (A) 0.04 X 10*3/uL (0.04-0.35); Eosinophils % (A) 0.4 %; HCT 32.6 % (39.6-50.0); HGB 10.3 g/dL (13.0-17.0); Lymphocytes % (A) 11.8 %; MCH 29.4 pg (27.0-32.0); MCHC 31.6 g/dL (32.0-37.0); MCV 93.1 FL (80.0-97.0); Mean Platelet Volume 9.5 FL (9.5-12.2); Monocytes # (A) 0.93 X 10*3/uL (0.20-1.00); Monocytes % (A) 8.5 %; NRBC Per 100 WBC 0 X 10*3/uL (0.00-0.01); Neutrophils # (A) 8.57 X 10*3/uL (1.80-7.70); Neutrophils % (A) 77.9 %; Platelet Count 495 X 10*3/uL (140-440)
[2024-12-13] MEDS: FUROSEMIDE 20 MG TAB PO SCH (09:37)
[2024-12-13] MEDS: CYANOCOBALAMIN 500 MCG TAB PO SCH (09:37)
[2024-12-13] MEDS: TAMSULOSIN 0.4 MG CAP.ER.24H PO SCH (09:38)
[2024-12-13] MEDS: DABIGATRAN 150 MG CAP PO SCH (09:39)
[2024-12-13] MEDS: polyethylene glycoL 3350 17 GM POWD.PACK PO SCH (09:40)
--- NOTE | 2024-12-13 11:27 | P.PN ---
Subjective Progress Note Date: 12/13/24 Principal diagnosis: Right reverse total shoulder arthroplasty dislocation Patient was seen at bedside this morning lying in the summary composition in bed with shoulder brace present to right upper extremity. Bulky dressing is in place over right shoulder. Champion is in place. Patient says he has been up walking little bit with the nursing staff this morning and felt okay when he is up and about. Patient states she has been feeling much more balance when up walking. Patient says he is looking forward to working with PT/OT today. Patient says pain is under control with oral medication. Patient says he is having some pain to the right shoulder at this time with some radiation just to above the elbow. Patient denies any other issues at this time. Objective - Vital Signs Vital signs: Vital Signs Temp 98 F 12/13/24 07:06 Pulse 61 12/13/24 07:06 Resp 16 12/13/24 07:06 BP 111/65 12/13/24 07:06 Pulse Ox 100 12/13/24 07:06 FiO2 Intake & Output 12/12/24 12/13/24 12/13/24 18:59 06:59 18:59 Intake Total 1500 Output Total 800 1375 Balance 700 -1375 Weight 133.36 kg Intake: IV 1500 Output: Urine 700 1375 Uretheral (Champion) 700 Estimated Blood Loss 100 Other: Voiding Method Indwelling Catheter - Exam Right shoulder: Incision is clean, dry, and intact. Shoulder brace is in place over the right upper extremity. the bulky dressing is in good condition. There is minimal soft tissue swelling and ecchymosis surrounding the medial and lateral aspects of the incision. Calf is soft, no tenderness with palpation. Plantar flexion, dorsiflexion, EHL, FHL are intact. Sensory exam to light touch throughout the extremity is intact, dorsal pedis pulses 2+. - Labs CBC & Chem 7: 12/13/24 06:08 12/12/24 09:35 Labs: Abnormal Lab Results - Last 24 Hours (Table) 12/12/24 12/12/24 12/12/24 Range/Units 09:35 09:35 09:35 WBC 10.33 H (4.50-10.00) 10*3/uL RBC 4.08 L (4.40-5.60) 10*6/uL Hgb 12.3 L (13.0-17.0) g/dL Hct 38.0 L (39.6-50.0) % MCHC (32.0-37.0) g/dL Plt Count 484 H D (140-440) 10*3/uL MPV 9.4 L (9.5-12.2) fL Immature Gran # 0.17 H (0.00-0.04) 10*3/uL Neutrophils # 7.80 H (1.80-7.70) 10*3/uL PT 13.0 H (10.0-12.5) sec INR 1.2 H (<1.2) Creatinine 0.59 L (0.66-1.25) mg/dL Albumin 3.2 L (3.5-5.0) g/dL 12/13/24 Range/Units 06:08 WBC 11.00 H (4.50-10.00) 10*3/uL RBC 3.50 L (4.40-5.60) 10*6/uL Hgb 10.3 L (13.0-17.0) g/dL Hct 32.6 L (39.6-50.0) % MCHC 31.6 L (32.0-37.0) g/dL Plt Count 495 H (140-440) 10*3/uL MPV (9.5-12.2) fL Immature Gran # 0.09 H (0.00-0.04) 10*3/uL Neutrophils # 8.57 H (1.80-7.70) 10*3/uL PT (10.0-12.5) sec INR (<1.2) Creatinine (0.66-1.25) mg/dL Albumin (3.5-5.0) g/dL Assessment and Plan Assessment: 1. Right reverse total shoulder arthroplasty dislocation Postop day 1 status post: Attempted closed reduction right reverse total shoulder dislocation Revision right total shoulder arthroplastyopen reduction Plan: 1. Right reverse total shoulder arthroplasty dislocation -surgery performed yesterday, , 12/12/2024 Attempted closed reduction right reverse total shoulder dislocation; Revision right total shoulder arthroplastyopen reduction. Patient stable bedside this morning on 4 S. with shoulder brace present to right upper extremity and bulky dressing in place over right shoulder. Champion/catheter in place. Maintain at this time. Patient to work with PT/OT daily. Pain medication as needed. Remain nonweightbearing to the right upper extremity. Keep right upper extremity in brace at all times. We will continue to follow patient during stay in hospital. Discharge planning pending 2. Appreciate medical management 3. Pain management -Percocet; Lyrica; Flexeril 4. DVT prophylaxis -Pradaxa 5. GI prophylaxis -senna 6. PT/OT -nonweightbearing right upper extremity. Maintain right upper extremity in brace. 7. Encourage incentive spirometer use 8. Discharge planning -pending Time with Patient: Less than 30
--- NOTE | 2024-12-13 12:16 | P.CONS ---
History of Present Illness - Reason for Consult Consult date: 12/13/24 Medical management - History of Present Illness History of present illness; patient 69-year-old gentleman with past medical history significant for recent reverse right total shoulder arthroplasty on 11/26, recent lumbar surgery in the form of L1-L2 and L2-L3 posterior lateral interbody fusion on 11/30 who presented the hospital for closed reduction internal fixation versus possible open reduction with possible revision reverse right total shoulder arthroplasty by Dr. Lyle. Patient was following up outpatient with orthopedics, x-rays done at that time showed dislocation of the right total shoulder components. Decision was made to proceed with surgery, patient underwent Revision right total shoulder arthroplastyopen reduction on 12/12. Postoperatively internal medicine team were consulted for medical management REVIEW OF SYSTEMS: CONSTITUTIONAL: No fever, no malaise, no fatigue. HEENT: No recent visual problems or hearing problems. Denied any sore throat. CARDIOVASCULAR: No chest pain, orthopnea, PND, no palpitations, no syncope. PULMONARY: No shortness of breath, no cough, no hemoptysis. GASTROINTESTINAL: No diarrhea, no nausea, no vomiting, no abdominal pain. NEUROLOGICAL: No headaches, no weakness, no numbness. HEMATOLOGICAL: Denies any bleeding or petechiae. GENITOURINARY: Denies any burning micturition, frequency, or urgency. MUSCULOSKELETAL/RHEUMATOLOGICAL: Right shoulder pain ENDOCRINE: Denies any polyuria or polydipsia. The rest of the 14-point review of systems is negative. PHYSICAL EXAMINATION: GENERAL: The patient is alert and oriented x3, not in any acute distress. Well developed, well nourished. HEENT: Pupils are round and equally reacting to light. EOMI. No scleral icterus. No conjunctival pallor. Normocephalic, atraumatic. No pharyngeal erythema. No thyromegaly. CARDIOVASCULAR: S1 and S2 present. No murmurs, rubs, or gallops. PULMONARY: Chest is clear to auscultation, no wheezing or crackles. ABDOMEN: Soft, nontender, nondistended, normoactive bowel sounds. No palpable organomegaly. MUSCULOSKELETAL: Right shoulder sling seen EXTREMITIES: No cyanosis, clubbing, or pedal edema. NEUROLOGICAL: Gross neurological examination did not reveal any focal deficits. SKIN: No rashes. Assessment and plan Right shoulder dislocation -history of recent reverse right total shoulder arthroplasty s/p Revision right total shoulder arthroplastyopen reduction Recent L1-L2 and L2-L3 posterior lateral interbody fusion on 11/30 History of hypertension History of atrial fibrillation Monitor vital signs Monitor CBC Continue pain management per orthopedics Continue DVT prophylaxis per orthopedics Aggressive bowel regimen to prevent opioid-induced constipation Resume amiodarone and Pradaxa PT and OT consulted Labs and medication were reviewed.. Continue same treatment. Continue with symptomatic treatment. Resume home medication. Monitor labs and vitals. DVT and GI prophylaxis. Further recommendations as per clinical course of the patient Dictation was produced using [employer] dictation software. please excuse any grammatical, word or spelling errors. 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 Had right shoulder replacement 11/26/24, then fell and hurt his back, had L1-L2 fusion with revision of L2-L3 fusion on 11/30/24, spouse states his shoulder got messed up during his back surgery so now has to have surgery on it again. History of Any Multi-Drug Resistant Organisms: None Reported Past Surgical History: Back Surgery, Heart Catheterization, Hernia Repair, Joint Replacement, Orthopedic Surgery Additional Past Surgical History / Comment(s): BILATERAL TOTAL KNEE REPLACEMENTS, BILATERAL SHOULDER REPLACEMENTS, C4-C5-C6 FUSION, L2-L3 FUSION, BILATERAL CARPAL TUNNEL RELEASE, COLONOSCOPY, CARDIOVERSION 2012, TRIGGER FINGER RELEASES, L1-L2 FUSION, REVISION OF L2-L3 FUSION, Right revers total shoulder arthroplasty 11/26/24, open reduction revision of right total shoulder arthroplasty 12/12/24. Past Anesthesia/Blood Transfusion Reactions: No Reported Reaction Additional Past Anesthesia/Blood Transfusion Reaction / Comm: Slow to wake from anesthesia. Past Psychological History: Anxiety Additional Psychological History / Comment(s): CLAUTROPHOBIA. Smoking Status: Never smoker Past Alcohol Use History: None Reported Past Drug Use History: None Reported - Past Family History Father Family Medical History: Cancer Mother Family Medical History: CVA/TIA, Diabetes Mellitus, Hyperlipidemia, Hypertension, Rheumatoid Arthritis (RA) Additional Family Medical History / Comment(s): Sinus headaches, headaches, aneursym passed at 47 years old. Sister(s) Additional Family Medical History / Comment(s): Epilepsy. Medications and Allergies Home Medications Medication Instructions Recorded Confirmed Type Cyclobenzaprine [Flexeril] 5 mg PO HS 10/04/22 12/12/24 History Divalproex [Depakote] 250 mg PO TID 10/04/22 12/12/24 History Furosemide [Lasix] 20 mg PO DAILY 10/04/22 12/12/24 History Memantine [Namenda] 5 mg PO BID 10/04/22 12/12/24 History Amiodarone [Cordarone] 100 mg PO BID 10/12/22 12/12/24 History Tamsulosin HCl [Flomax] 0.4 mg PO DAILY 10/19/22 12/12/24 History hydrOXYzine pamoate [Vistaril] 25 mg PO TID PRN #21 cap 11/27/24 12/12/24 Rx Levothyroxine Sodium [Synthroid] 175 mcg PO DAILY 11/28/24 12/12/24 History Sennosides/Docusate Sodium [Senna 1 cap PO DAILY 11/28/24 12/12/24 History Plus 8.6-50 mg Softgel] rOPINIRole HCL 8 mg PO HS 11/28/24 12/12/24 History rOPINIRole HCL [Requip] 4 mg PO QAM 11/28/24 12/12/24 History Pregabalin [Lyrica] 225 mg PO BID 5 Days #10 cap 12/05/24 12/12/24 Rx oxyCODONE-APAP 5-325MG [Percocet 1 tab PO Q6HR PRN 7 Days #28 tab 12/05/24 12/12/24 Rx 5-325 mg] Atorvastatin Calcium 40 mg PO HS 12/11/24 12/12/24 History Cyanocobalamin [Vitamin B-12] 1,000 mcg PO DAILY 12/11/24 12/12/24 History Lactulose [Cephulac] 15 ml PO BID 12/11/24 12/12/24 History Metoprolol Tartrate 25 mg PO BID 12/11/24 12/12/24 History Tuberculin Ppd (Skin Test) 1 dose INTRADERMA FR 12/11/24 12/12/24 History [Tubersol] polyethylene glycoL 3350 [Miralax] 17 gm PO DAILY PRN 12/11/24 12/12/24 History Dabigatran Etexilate Mesylate 150 mg PO BID 12/12/24 12/12/24 History [Pradaxa] Allergies Allergy/AdvReac Type Severity Reaction Status Date / Time morphine AdvReac Nausea & Verified 12/12/24 09:14 Vomiting Physical Exam Vitals: Vital Signs Temp Pulse Resp BP Pulse Ox 12/13/24 07:06 98 F 61 16 111/65 100 12/13/24 01:07 98.3 F 70 17 126/74 95 12/12/24 19:06 97.6 F 66 17 154/72 93 L 12/12/24 14:00 97.9 F 68 17 116/68 97 12/12/24 13:22 73 16 128/69 97 12/12/24 13:09 72 14 122/73 99 12/12/24 12:54 73 12 124/69 99 12/12/24 12:38 73 14 142/125 99 12/12/24 12:23 97.1 F L 75 18 124/65 99 Intake and Output 12/12/24 12/13/24 12/13/24 22:59 06:59 14:59 Output Total 1300 675 Balance -1300 -675 Output: Urine 1300 675 Uretheral (Champion) 700 Other: Voiding Method Indwelling Catheter Results CBC & Chem 7: 12/13/24 06:08 12/12/24 09:35 Labs: Abnormal Lab Results - Last 24 Hours (Table) 12/13/24 Range/Units 06:08 WBC 11.00 H (4.50-10.00) X 10*3/uL RBC 3.50 L (4.40-5.60) X 10*6/uL Hgb 10.3 L (13.0-17.0) g/dL Hct 32.6 L (39.6-50.0) % MCHC 31.6 L (32.0-37.0) g/dL Plt Count 495 H (140-440) X 10*3/uL Immature Gran # 0.09 H (0.00-0.04) X 10*3/uL Neutrophils # 8.57 H (1.80-7.70) X 10*3/uL
[2024-12-13] MEDS: rOPINIRole HCL 4 MG TABLET PO SCH ×2 (15:29→20:57)
[2024-12-13] MEDS: SENNOSIDES-DOCUSATE SODIUM 1 EACH TAB PO PRN (21:54)
[2024-12-14] MEDS: NICOTINE 14MG/24HR PATCH TRANSDERM STA (00:46)
[2024-12-14] MEDS: INSULIN LISPRO (HumaLOG) 100 UNIT/ML 10 mL VL SQ SCH (00:46)
--- NOTE | 2024-12-14 11:58 | P.PN ---
Subjective Progress Note Date: 12/14/24 Principal diagnosis: Status post revision reverse right total shoulder arthroplasty, recent lumbar back surgery, recent reverse right total shoulder arthroplasty with dislocation Patient evaluated at bedside, he is sleeping on exam, he is easily awoken. He states that the pain is tolerable at this time, he is taking oral Percocet. Surgical dressing remains intact along with the sling. Patient states he was up in the chair having breakfast today. Denies headaches, lightheadedness, chest pain or shortness of breath Objective - Vital Signs Vital signs: Vital Signs Temp 97.7 F 12/14/24 07:10 Pulse 55 L 12/14/24 07:10 Resp 16 12/14/24 07:10 BP 143/72 12/14/24 07:10 Pulse Ox 97 12/14/24 07:10 FiO2 Intake & Output 12/13/24 12/14/24 12/14/24 18:59 06:59 18:59 Intake Total 540 180 Output Total 1100 Balance -1100 540 180 Intake: Oral 540 180 Output: Urine 1100 Other: Voiding Method Indwelling Catheter Indwelling Catheter Indwelling Catheter # Bowel Movements 1 - Exam Right upper extremity: Surgical dressing is in good position and condition, sling is in appropriate position. Mild swelling noted to the entire extremity. Compartments are soft and compressible. Sensation to light touch is intact throughout the extremity. Radial and ulnar pulse are 2+ - Labs CBC & Chem 7: 12/13/24 06:08 12/12/24 09:35 Assessment and Plan Assessment: Postoperative day #2 status post revision reverse right total shoulder arthroplasty Plan: Pain control, continue with current medications DVT prophylaxis, continue with current medications Sling to the right upper extremity, no weightbearing with that extremity at this time PT/OT Medical recommendations appreciated Discharge planning: Anticipate patient will need subacute rehab placement, hopefully by 12/16/2024 Time with Patient: Less than 30
--- NOTE | 2024-12-14 18:00 | P.PN ---
Subjective Progress Note Date: 12/14/24 69-year-old gentleman with past medical history significant for recent reverse right total shoulder arthroplasty on 11/26, recent lumbar surgery in the form of L1-L2 and L2-L3 posterior lateral interbody fusion on 11/30 who presented the hospital for closed reduction internal fixation versus possible open reduction with possible revision reverse right total shoulder arthroplasty by Dr. Lyle. Patient was following up outpatient with orthopedics, x-rays done at that time showed dislocation of the right total shoulder components. Decision was made to proceed with surgery, patient underwent Revision right total shoulder arthroplastyopen reduction on 12/12. Postoperatively internal medicine team were consulted for medical management Objective - Vital Signs Vital signs: Vital Signs Temp 97.7 F 12/14/24 07:10 Pulse 55 L 12/14/24 07:10 Resp 16 12/14/24 07:10 BP 143/72 12/14/24 07:10 Pulse Ox 97 12/14/24 07:10 FiO2 Intake & Output 12/13/24 12/14/24 12/14/24 18:59 06:59 18:59 Intake Total 540 180 Output Total 1100 Balance -1100 540 180 Intake: Oral 540 180 Output: Urine 1100 Other: Voiding Method Indwelling Catheter Indwelling Catheter Indwelling Catheter # Bowel Movements 1 - Exam GENERAL: The patient is alert and oriented x3, not in any acute distress. Well developed, well nourished. HEENT: Pupils are round and equally reacting to light. EOMI. No scleral icterus. No conjunctival pallor. Normocephalic, atraumatic. No pharyngeal erythema. No thyromegaly. CARDIOVASCULAR: S1 and S2 present. No murmurs, rubs, or gallops. PULMONARY: Chest is clear to auscultation, no wheezing or crackles. ABDOMEN: Soft, nontender, nondistended, normoactive bowel sounds. No palpable organomegaly. MUSCULOSKELETAL: Right shoulder sling seen EXTREMITIES: No cyanosis, clubbing, or pedal edema. NEUROLOGICAL: Gross neurological examination did not reveal any focal deficits. SKIN: No rashes. - Labs CBC & Chem 7: 12/13/24 06:08 12/12/24 09:35 Assessment and Plan Assessment: Right shoulder dislocation -history of recent reverse right total shoulder arthroplasty s/p Revision right total shoulder arthroplastyopen reduction Recent L1-L2 and L2-L3 posterior lateral interbody fusion on 11/30 History of hypertension History of atrial fibrillation Monitor vital signs Monitor CBC Continue pain management per orthopedics Continue DVT prophylaxis per orthopedics Aggressive bowel regimen to prevent opioid-induced constipation Resume amiodarone and Pradaxa PT and OT consulted Labs and medication were reviewed.. Continue same treatment. Continue with symptomatic treatment. Resume home medication. Monitor labs and vitals. DVT a nd GI prophylaxis. Further recommendations as per clinical course of the patient
[2024-12-14] MEDS: SENNOSIDES-DOCUSATE SODIUM 1 EACH TAB PO SCH (21:46)
[2024-12-15 07:21] LABS: Basophils # (A) 0.12 10*3/uL (0.00-0.10); Basophils % (A) 1.6 %; Eosinophils # (A) 0.33 10*3/uL (0.04-0.35); Eosinophils % (A) 4.4 %; HCT 34.2 % (39.6-50.0); HGB 10.9 g/dL (13.0-17.0); Lymphocytes # (A) 1.56 10*3/uL (0.90-5.00); Lymphocytes % (A) 20.9 %; MCH 29.9 pg (27.0-32.0); MCHC 31.9 g/dL (32.0-37.0); MCV 93.7 fL (80.0-97.0); Mean Platelet Volume 9.2 fL (9.5-12.2); Monocytes # (A) 0.64 10*3/uL (0.20-1.00); Monocytes % (A) 8.6 %; Neutrophils % (A) 62.8 %; Platelet Count 495 10*3/uL (140-440); RBC 3.65 10*6/uL (4.40-5.60); WBC 7.48 10*3/uL (4.50-10.00)
[2024-12-15 07:38] LABS: African American GFR (CKD) >90 (>60 ml/min/1.73 sqM); Anion Gap 6 mmol/L; Blood Urea Nitrogen 9 mg/dL (9-20); Calcium 8.3 mg/dL (8.4-10.2); Carbon Dioxide 29 mmol/L (22-30); Chloride 99 mmol/L (98-107); Glucose 92 mg/dL (74-99); Non-African American GFR(CKD) >90 (>60 ml/min/1.73 sqM); Potassium 4.4 mmol/L (3.5-5.1); Sodium 134 mmol/L (137-145)
--- NOTE | 2024-12-15 11:47 | P.PN ---
Subjective Progress Note Date: 12/15/24 Principal diagnosis: Status post revision reverse right total shoulder arthroplasty, recent lumbar back surgery, recent reverse right total shoulder arthroplasty with dislocation Patient evaluated at bedside, he is sleeping on exam, he is easily awoken. Patient is requiring assistance in getting out of bed but using the platform walker. Patient has been getting up to the chair and urinating also in the bathroom and no issues. Denies headaches, lightheadedness, chest pain or shortness of breath Objective - Vital Signs Vital signs: Vital Signs Temp 97.9 F 12/15/24 06:53 Pulse 58 L 12/15/24 06:53 Resp 16 12/15/24 06:53 BP 127/79 12/15/24 06:53 Pulse Ox 94 L 12/15/24 10:25 FiO2 21 12/15/24 10:25 Intake & Output 12/14/24 12/15/24 12/15/24 18:59 06:59 18:59 Intake Total 1380 180 Output Total 500 Balance 880 180 Intake: Oral 1380 180 Output: Urine 500 Other: Voiding Method Indwelling Catheter Toilet Urinal # Voids 1 2 - Exam Right upper extremity: Surgical dressing is in good position and condition, sling is in appropriate position. Mild swelling noted to the entire extremity. Compartments are soft and compressible. Sensation to light touch is intact throughout the extremity. Radial and ulnar pulse are 2+ - Labs CBC & Chem 7: 12/15/24 07:00 12/15/24 07:00 Labs: Abnormal Lab Results - Last 24 Hours (Table) 12/15/24 12/15/24 Range/Units 07:00 07:00 RBC 3.65 L (4.40-5.60) 10*6/uL Hgb 10.9 L (13.0-17.0) g/dL Hct 34.2 L (39.6-50.0) % MCHC 31.9 L (32.0-37.0) g/dL Plt Count 495 H (140-440) 10*3/uL MPV 9.2 L (9.5-12.2) fL Immature Gran # 0.13 H (0.00-0.04) 10*3/uL Basophils # 0.12 H (0.00-0.10) 10*3/uL Sodium 134 L (137-145) mmol/L Creatinine 0.52 L (0.66-1.25) mg/dL Calcium 8.3 L (8.4-10.2) mg/dL Assessment and Plan Assessment: Postoperative day #3 status post revision reverse right total shoulder arthroplasty Plan: Pain control, discontinued IV Dilaudid, continue with oral medication DVT prophylaxis, continue with current medications Sling to the right upper extremity, no weightbearing with that extremity at this time PT/OT Medical recommendations appreciated Discharge planning: Patient will benefit from stay at subacute rehab, will dis cuss this with case management on 12/16/2024 Time with Patient: Less than 30
--- NOTE | 2024-12-15 16:30 | P.PN ---
Subjective Progress Note Date: 12/15/24 69-year-old gentleman with past medical history significant for recent reverse right total shoulder arthroplasty on 11/26, recent lumbar surgery in the form of L1-L2 and L2-L3 posterior lateral interbody fusion on 11/30 who presented the hospital for closed reduction internal fixation versus possible open reduction with possible revision reverse right total shoulder arthroplasty by Dr. Lyle. Patient was following up outpatient with orthopedics, x-rays done at that time showed dislocation of the right total shoulder components. Decision was made to proceed with surgery, patient underwent Revision right total shoulder arthroplastyopen reduction on 12/12. Postoperatively internal medicine team were consulted for medical management 12/15/2024 Patient is seen and evaluated sitting up in bedside chair with family at bedside; patient is status post revision right shoulder arthroplasty; POD #3 Vital signs are reviewed and stable Lab review shows WBC 7.8 from 11.0 from previous blood work, hemoglobin stable at 10.9 and platelet count of 495, sodium 134, potassium 4.4, BUN/creatinine of 9/0.52 Patient requires assistance getting out of the bed; able to ambulate using platf orm walker -Patient is nonweightbearing with right upper extremity which is in sling - Plan for PT/OT evaluation/possible subacute rehab Objective - Vital Signs Vital signs: Vital Signs Temp 97.9 F 12/15/24 06:53 Pulse 58 L 12/15/24 06:53 Resp 16 12/15/24 06:53 BP 127/79 12/15/24 06:53 Pulse Ox 94 L 12/15/24 10:25 FiO2 21 12/15/24 10:25 Intake & Output 12/14/24 12/15/24 12/15/24 18:59 06:59 18:59 Intake Total 1380 180 Output Total 500 Balance 880 180 Intake: Oral 1380 180 Output: Urine 500 Other: Voiding Method Indwelling Catheter Toilet Urinal # Voids 1 2 1 - Exam GENERAL: The patient is alert and oriented x3, not in any acute distress. Well developed, well nourished. HEENT: Pupils are round and equally reacting to light. EOMI. No scleral icterus. No conjunctival pallor. Normocephalic, atraumatic. No pharyngeal erythema. No thyromegaly. CARDIOVASCULAR: S1 and S2 present. No murmurs, rubs, or gallops. PULMONARY: Chest is clear to auscultation, no wheezing or crackles. ABDOMEN: Soft, nontender, nondistended, normoactive bowel sounds. No palpable organomegaly. MUSCULOSKELETAL: Right shoulder sling seen EXTREMITIES: No cyanosis, clubbing, or pedal edema. NEUROLOGICAL: Gross neurological examination did not reveal any focal deficits. SKIN: No rashes. - Labs CBC & Chem 7: 12/15/24 07:00 12/15/24 07:00 Labs: Abnormal Lab Results - Last 24 Hours (Table) 12/15/24 12/15/24 Range/Units 07: 07:00 RBC 3.65 L (4.40-5.60) 10*6/uL Hgb 10.9 L (13.0-17.0) g/dL Hct 34.2 L (39.6-50.0) % MCHC 31.9 L (32.0-37.0) g/dL Plt Count 495 H (140-440) 10*3/uL MPV 9.2 L (9.5-12.2) fL Immature Gran # 0.13 H (0.00-0.04) 10*3/uL Basophils # 0.12 H (0.00-0.10) 10*3/uL Sodium 134 L (137-145) mmol/L Creatinine 0.52 L (0.66-1.25) mg/dL Calcium 8.3 L (8.4-10.2) mg/dL Assessment and Plan Assessment: Right shoulder dislocation -history of recent reverse right total shoulder arthroplasty s/p Revision right total shoulder arthroplastyopen reduction Recent L1-L2 and L2-L3 posterior lateral interbody fusion on 11/30 History of hypertension History of atrial fibrillation Monitor vital signs Monitor CBC Continue pain management per orthopedics Continue DVT prophylaxis per orthopedics Aggressive bowel regimen to prevent opioid-induced constipation Resume amiodarone and Pradaxa PT and OT consulted Labs and medication were reviewed.. Continue same treatment. Continue with symptomatic treatment. Resume home medication. Monitor labs and vitals. DVT and GI prophylaxis. Further recommendations as per clinical course of the patient
[2024-12-16 08:00] VITALS: BP 101/56; PULSE 59; RESP 18; TEMP 97
--- NOTE | 2024-12-16 09:43 | P.PN ---
Subjective Progress Note Date: 12/16/24 Principal diagnosis: Status post revision reverse right total shoulder arthroplasty, recent lumbar back surgery, recent reverse right total shoulder arthroplasty with dislocation Patient evaluated at bedside, patient's is also present. Patient's pain is adequately controlled at this time. Discussed with case management today hopeful discharge to subacute rehab. Denies headaches, lightheadedness, chest pain or shortness of breath Objective - Vital Signs Vital signs: Vital Signs Temp 97 F L 12/16/24 06:45 Pulse 59 L 12/16/24 06:45 Resp 18 12/16/24 06:45 BP 101/56 12/16/24 06:45 Pulse Ox 98 12/16/24 06:45 FiO2 21 12/15/24 10:25 Intake & Output 12/15/24 12/16/24 12/16/24 18:59 06:59 18:59 Intake Total 1374 Balance 1374 Intake: Oral 1374 Other: Voiding Method Toilet Urinal Urinal # Voids 1 2 # Bowel Movements 1 - Exam Right upper extremity: Surgical dressing is in good position and condition, sling is in appropriate position. Mild swelling noted to the entire extremity. Compartments are soft and compressible. Sensation to light touch is intact throughout the extremity. Radial and ulnar pulse are 2+ - Labs CBC & Chem 7: 12/15/24 07:00 12/15/24 07:00 Assessment and Plan Assessment: Postoperative day #4 status post revision reverse right total shoulder arthroplasty Plan: Pain control, will discharge home on oral medication DVT prophylaxis, continue with current medications Sling to the right upper extremity, no weightbearing with that extremity at this time PT/OT Medical recommendations appreciated Discharge planning: Hopeful discharge to subacute rehab today
--- NOTE | 2024-12-16 09:49 | P.DS ---
Providers Date of admission: 12/11/2024 Expected date of discharge: 12/16/24 Attending physician: Rene Stern Consults: 12/12/24 12:05 Consult Physician Routine Consulting Provider: Josette Laurent Consult Reason/Comments: medical management Do you want consulting provider notified?: Yes Primary care physician: Deven Jaime Hospital Course: Date of admission: 12/11/2024 Date of discharge: 12/16/2024 Admission diagnosis: Dislocated right periprosthetic reverse total shoulder arthroplasty Discharge diagnosis: Status post revision right reverse total shoulder arthroplasty Attending physician: Dr. Stern Surgical procedures: Revision right reverse total shoulder arthroplasty Brief history: Patient is a 69-year-old male who had initially undergone a reverse right total shoulder arthroplasty about 3 weeks ago, within 3 to 4 days after the surgery he had experienced multiple falls at home and developed lower extremity weakness. Patient was then readmitted to [facility] and underwent a lumbar procedure by our orthopedic spine surgery team. Patient then reported to his first postop for his right shoulder, was determined he had a dislocation at that time. Very difficult to determine the exact time the patient did dislocate the shoulder due to his falls, recent surgery. Patient was admitted to [facility] with plan for revision surgery on the right shoulder. Hospital course: Details of patient's surgery can be found in operative report. Patient tolerated the procedure well and was subsequently transported to orthopedic floor. Patient's orthopeidc and medical care was provided daily. Patient had daily laboratory tests performed for evaluation of overall blood counts. Patient had daily physical therapy to include strengthening range of motion as well as education with walker ambulation. Patient was treated with Pradaxa for their postoperative DVT prophylaxis during their inpatient stay. Patient was noted to have a relatively uneventful postoperative course. Patient reported satisfactory pain control with oral pain medications by postoperative day 1. Patient showed satisfactory progress with physical therapy. Patient mo stefanie steadily through the program and had no difficulty meeting the goals by postoperative day 4. Given patient's otherwise satisfactory course and having met physical therapy goals, plan is to discharge patient subacute rehab on postoperative day 4. Discharge condition/disposition: Patient will be discharged home in stable condition. Discharge medications: Instructions are given on resumption of patient's normal daily medications per primary care recommendation, in addition patient will be prescribed Percocet 5 mg / 325 mg, Duricef 500 mg, senna S, MiraLAX 17 g. Discharge instructions: 1. Utilize arm sling at all times 2. Keep incision covered and dry while showering 3. Nonweightbearing right upper extremity 4. Ice and elevate 5. Please contact [facility] with any acute questions, Procedures: Revision right reverse total shoulder arthroplasty Patient Condition at Discharge: Good Plan - Discharge Summary Discharge Rx Participant: No New Discharge Prescriptions: New Pregabalin [Lyrica] 225 mg PO BID 3 Days #6 cap cefaDROXiL [Duricef] 500 mg PO Q12HR #10 cap oxyCODONE-APAP 5-325MG [Percocet 5-325 mg] 1 tab PO Q6HR PRN 3 Days #12 tab PRN Reason: Pain No Action Memantine [Namenda] 5 mg PO BID Divalproex [Depakote] 250 mg PO TID Furosemide [Lasix] 20 mg PO DAILY hydrOXYzine pamoate [Vistaril] 25 mg PO TID PRN #21 cap PRN Reason: Pain Levothyroxine Sodium [Synthroid] 175 mcg PO DAILY oxyCODONE-APAP 5-325MG [Percocet 5-325 mg] 1 tab PO Q6HR PRN 7 Days #28 tab PRN Reason: Pain Pregabalin [Lyrica] 225 mg PO BID 5 Days #10 cap Metoprolol Tartrate 25 mg PO BID Atorvastatin Calcium 40 mg PO HS Lactulose [Cephulac] 15 ml PO BID polyethylene glycoL 3350 [Miralax] 17 gm PO DAILY PRN PRN Reason: Constipation Cyclobenzaprine [Flexeril] 5 mg PO HS Amiodarone [Cordarone] 100 mg PO BID Tamsulosin HCl [Flomax] 0.4 mg PO DAILY rOPINIRole HCL 8 mg PO HS rOPINIRole HCL [Requip] 4 mg PO QAM Sennosides/Docusate Sodium [Senna Plus 8.6-50 mg Softgel] 1 cap PO DAILY Cyanocobalamin [Vitamin B-12] 1,000 mcg PO DAILY Tuberculin Ppd (Skin Test) [Tubersol] 1 dose INTRADERMA FR Dabigatran Etexilate Mesylate [Pradaxa] 150 mg PO BID Discharge Medication List Cyclobenzaprine [Flexeril] 5 mg PO HS 10/04/22 [History] Divalproex [Depakote] 250 mg PO TID 10/04/22 [History] Furosemide [Lasix] 20 mg PO DAILY 10/04/22 [History] Memantine [Namenda] 5 mg PO BID 10/04/22 [History] Amiodarone [Cordarone] 100 mg PO BID 10/12/22 [History] Tamsulosin HCl [Flomax] 0.4 mg PO DAILY 10/19/22 [History] hydrOXYzine pamoate [Vistaril] 25 mg PO TID PRN #21 cap 11/27/24 [Rx] Levothyroxine Sodium [Synthroid] 175 mcg PO DAILY 11/28/24 [History] Sennosides/Docusate Sodium [Senna Plus 8.6-50 mg Softgel] 1 cap PO DAILY 11/28 [History] rOPINIRole HCL 8 mg PO HS 11/28/24 [History] rOPINIRole HCL [Requip] 4 mg PO QAM 11/28/24 [History] Pregabalin [Lyrica] 225 mg PO BID 5 Days #10 cap 12/05/24 [Rx] oxyCODONE-APAP 5-325MG [Percocet 5-325 mg] 1 tab PO Q6HR PRN 7 Days #28 tab 12/05/24 [Rx] Atorvastatin Calcium 40 mg PO HS 12/11/24 [History] Cyanocobalamin [Vitamin B-12] 1,000 mcg PO DAILY 12/11/24 [History] Lactulose [Cephulac] 15 ml PO BID 12/11/24 [History] Metoprolol Tartrate 25 mg PO BID 12/11/24 [History] Tuberculin Ppd (Skin Test) [Tubersol] 1 dose INTRADERMA FR 12/11/24 [History] polyethylene glycoL 3350 [Miralax] 17 gm PO DAILY PRN 12/11/24 [History] Dabigatran Etexilate Mesylate [Pradaxa] 150 mg PO BID 12/12/24 [History] Pregabalin [Lyrica] 225 mg PO BID 3 Days #6 cap 12/16/24 [Rx] cefaDROXiL [Duricef] 500 mg PO Q12HR #10 cap 12/16/24 [Rx] oxyCODONE-APAP 5-325MG [Percocet 5-325 mg] 1 tab PO Q6HR PRN 3 Days #12 tab 12/16/24 [Rx] Follow up Appointment(s)/Referral(s): Rene Stern MD [STAFF PHYSICIAN] - 1 Week Activity/Diet/Wound Care/Special Instructions: Orthopedic discharge instructions: 1. Utilize arm sling at all times 2. Nonweightbearing right upper extremity 3. Keep incision covered and dry 4. Follow-up with [facility] in 2 weeks, please contact the office with any acute issues or questions Discharge Disposition: TRANSFER TO SNF/ECF
--- NOTE | 2024-12-16 13:20 | PN ---
PROGRESS NOTE DATE OF SERVICE: 12/16/2024 SUBJECTIVE: This 69-year-old gentleman who was admitted after right shoulder surgery is improving significantly. ECF rehab is being considered. No chest pain. No palpitation. OBJECTIVE: VITAL SIGNS: Pulse is 59, blood pressure 101/56, and respirations 18. CHEST: Clear to auscultation. CARDIOVASCULAR: S1 and S2. ABDOMEN: Soft. EXTREMITIES: Right shoulder, status post right shoulder surgery. LABORATORY DATA: Reviewed. ASSESSMENT: 1. Status post right shoulder arthroplasty. 2. Hypertension. 3. History of atrial fibrillation. RECOMMENDATIONS: Recommend to continue current management and continue symptomatic treatment. Otherwise, closely follow with primary physician after discharge. See medication reconciliation sheet for list of medications. MMODL / IJN: [id number] /
[~2024-12-16 15:41] MED LIST changes: +DEXTROSE 50% SYRINGE 50 ML IVP PRN; +ETOMIDATE 2 MG/ML 10 ML VIAL ONE; +HYDROmorphone (PF) 1 MG/ML ONE; +LIDOCAINE 1% INJ 10MG/ML (20 ML MDV) ONE; +MIDAZOLAM 2 MG/2 ML VIAL IV PRN; +ONDANSETRON 4 MG/2 ML VIAL IVP PRN; +ROCURONIUM 10 MG/ML (5 ML VIAL) IV ONE; +TRANEXAMIC 1,000 MG/100ML-NACL PREMIX BAG ONE; +ePHEDrine 50 MG/ML 1 ML VIAL ONE; -fentaNYL (PF) 50 MCG/ML 2 ML AMP IV PRN; +fentaNYL (PF) 50 MCG/ML 2 ML AMP IVP PRN; +fentaNYL (PF) 50 MCG/ML 2 ML AMP ONE
== END 2024-12-16 16:26 | DRG 560 ==
LOC: U 15:41 → ORWHC2ENDO 15:41 → 4SSUR 15:41 → ORWHC2ENDO 16:00 → U 16:26 → ORWHC2ENDO 16:26 → 4SSUR 16:26
PROVIDERS: ADMIT Hospitalist; ATTEND Orthopaedic Surgery
DX: Z47.89 Encounter for other orthopedic aftercare (principal); T84.028A Dislocation of other internal joint prosthesis, initial encounter; I69.311 Memory deficit following cerebral infarction; M25.511 Pain in right shoulder; I11.0 Hypertensive heart disease with heart failure; I50.9 Heart failure, unspecified; I69.344 Monoplegia of lower limb following cerebral infarction affecting left non-dominant side; M06.9 Rheumatoid arthritis, unspecified; I48.91 Unspecified atrial fibrillation; E78.5 Hyperlipidemia, unspecified; G47.30 Sleep apnea, unspecified; M19.011 Primary osteoarthritis, right shoulder; E07.9 Disorder of thyroid, unspecified; F41.9 Anxiety disorder, unspecified; Z79.01 Long term (current) use of anticoagulants; Z79.890 Hormone replacement therapy; Z79.899 Other long term (current) drug therapy; Z98.1 Arthrodesis status; Z96.653 Presence of artificial knee joint, bilateral; Z96.612 Presence of left artificial shoulder joint; Z96.611 Presence of right artificial shoulder joint; Z88.5 Allergy status to narcotic agent
CPT/HCPCS: 80053; 85025; 85610

== ENCOUNTER 2025-01-21 00:18 | Observation (INO) | payer MEDICARE, OTHER ==
--- NOTE | 2025-01-21 00:26 | ED ---
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 Fall Witnessed: no Place Fall Occurred: home Loss of Consciousness: none Prolonged Down Time?: no Symptoms Prior to Fall: none Location: head Severity: mild Severity scale (1-10): 2 Context: tripped/slipped Associated Symptoms: headache - Related Data Home Medications Medication Instructions Recorded Confirmed Cyclobenzaprine [Flexeril] 5 mg PO HS 10/04/22 12/12/24 Divalproex [Depakote] 250 mg PO TID 10/04/22 12/12/24 Furosemide [Lasix] 20 mg PO DAILY 10/04/22 12/12/24 Memantine [Namenda] 5 mg PO BID 10/04/22 12/12/24 Amiodarone [Cordarone] 100 mg PO BID 10/12/22 12/12/24 Tamsulosin HCl [Flomax] 0.4 mg PO DAILY 10/19/22 12/12/24 Levothyroxine Sodium [Synthroid] 175 mcg PO DAILY 11/28/24 12/12/24 rOPINIRole HCL 8 mg PO HS 11/28/24 12/12/24 rOPINIRole HCL [Requip] 4 mg PO QAM 11/28/24 12/12/24 Atorvastatin Calcium 40 mg PO HS 12/11/24 12/12/24 Cyanocobalamin [Vitamin B-12] 1,000 mcg PO DAILY 12/11/24 12/12/24 Lactulose [Cephulac] 15 ml PO BID 12/11/24 12/12/24 Metoprolol Tartrate 25 mg PO BID 12/11/24 12/12/24 Tuberculin Ppd (Skin Test) 1 dose INTRADERMA FR 12/11/24 12/12/24 [Tubersol] polyethylene glycoL 3350 [Miralax] 17 gm PO DAILY PRN 12/11/24 12/12/24 Dabigatran Etexilate Mesylate 150 mg PO BID 12/12/24 12/12/24 [Pradaxa] Previous Rx's Medication Instructions Recorded Pregabalin [Lyrica] 225 mg PO BID 3 Days #6 cap 12/16/24 Sennosides-Docusate Sodium 2 each PO HS tab 12/16/24 [Senokot-S] cefaDROXiL [Duricef] 500 mg PO Q12HR #10 cap 12/16/24 oxyCODONE-APAP 5-325MG [Percocet 1 tab PO Q6HR PRN 3 Days #12 tab 12/16/24 5-325 mg] Allergies Allergy/AdvReac Type Severity Reaction Status Date / Time morphine AdvReac Nausea & Verified 01/21/25 00:23 Vomiting Review of Systems ROS Statement: Those systems with pertinent positive or pertinent negative responses have been documented in the HPI. ROS Other: All systems not noted in ROS Statement are negative. 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 Currently at [facility], able to take a few steps only, otherwise in a wheelchair. Had right shoulder replacement 11/26/24, then fell and hurt his back, had L1-L2 fusion with revision of L2-L3 fusion on 11/30/24, recent right shoulder surgery (01/31). History of Any Multi-Drug Resistant Organisms: None Reported Past Surgical History: Back Surgery, Heart Catheterization, Hernia Repair, Joint Replacement, Orthopedic Surgery Additional Past Surgical History / Comment(s): BILATERAL TOTAL KNEE REPLACEMENTS, BILATERAL SHOULDER REPLACEMENTS, C4-C5-C6 FUSION, L2-L3 FUSION, BILATERAL CARPAL TUNNEL RELEASE, COLONOSCOPY, CARDIOVERSION 2012, TRIGGER FINGER RELEASES, L1-L2 FUSION, REVISION OF L2-L3 FUSION, Past Anesthesia/Blood Transfusion Reactions: No Reported Reaction Additional Past Anesthesia/Blood Transfusion Reaction / Comment(s): Slow to wake from anesthesia. Past Psychological History: Anxiety Smoking Status: Never smoker Past Alcohol Use History: None Reported Past Drug Use History: None Reported - Past Family History Father Family Medical History: Cancer Mother Family Medical History: CVA/TIA, Diabetes Mellitus, Hyperlipidemia, Hypertension, Rheumatoid Arthritis (RA) Additional Family Medical History / Comment(s): Sinus headaches, headaches, aneursym passed at 47 years old. Sister(s) Additional Family Medical History / Comment(s): Epilepsy. General Exam General appearance: alert, in no apparent distress Head exam: Present: atraumatic, normocephalic, normal inspection Eye exam: Present: normal appearance, PERRL, EOMI. Absent: scleral icterus, con junctival injection, periorbital swelling ENT exam: Present: normal exam, mucous membranes moist Neck exam: Present: normal inspection. Absent: tenderness, meningismus, lymphadenopathy Respiratory exam: Present: normal lung sounds bilaterally. Absent: respiratory distress, wheezes, rales, rhonchi, stridor Cardiovascular Exam: Present: regular rate, normal rhythm, normal heart sounds. Absent: systolic murmur, diastolic murmur, rubs, gallop, clicks GI/Abdominal exam: Present: soft, normal bowel sounds. Absent: distended, tenderness, guarding, rebound, rigid Extremities exam: Present: normal inspection, full ROM, normal capillary refill. Absent: tenderness, pedal edema, joint swelling, calf tenderness Back exam: Present: normal inspection Neurological exam: Present: alert, oriented X3, CN II-XII intact Psychiatric exam: Present: normal affect, normal mood Skin exam: Present: warm, dry, intact, normal color. Absent: rash Course Vital Signs 01/21/25 01/21/25 01/21/25 00:19 01:05 02:35 Temperature 99.8 F H Pulse Rate 75 71 72 Respiratory 18 20 22 Rate Blood Pressure 126/78 111/83 139/74 O2 Sat by Pulse 95 96 Oximetry 01/21/25 03:43 Temperature 98.6 F Pulse Rate 67 Respiratory 22 Rate Blood Pressure 115/68 O2 Sat by Pulse 94 L Oximetry - Reevaluation(s) Reevaluation #1: 01/21/25 00:48 Medical records reviewed Reevaluation #2: 01/21/25 00:48 Patient symptoms unchanged Reevaluation #3: 01/21/25 00:48 Patient informed of results and questions answered Reevaluation #4: Was pt. sent in by a medical professional or institution (, PA, ASSAULT AMPHIBIOUS VEHICLE OFFICER, urgent care, hospital, or senior care...) When possible be specific @ -no Did you speak to anyone other than the patient for history (EMS, parent, family, police, friend...)? What history was obtained from this source @ -no Did you review nursing and triage notes (agree or disagree)? Why? @ -agree Are old charts reviewed (outside hosp., previous admission, EMS record, old EKG, old radiological studies, urgent care reports/EKG's, senior care records)? Report findings @ -yes Differential Diagnosis (chest pain, altered mental status, abdominal pain women, abdominal pain men, vaginal bleeding, weakness, fever, dyspnea, syncope, headache, dizziness, GI bleed, back pain, seizure, CVA, palpatations, mental health, musculoskeletal)? @ -prior EKG interpreted by me (3pts min.). @ -yes X-rays interpreted by me (1pt min.). @ -yes negative for acute disease CT interpreted by me (1pt min.). @ -no U/S interpreted by me (1pt. min.). @ -no What testing was considered but not performed or refused? (CT, X-rays, U/S, labs)? Why? @ -none What meds were considered but not given or refused? Why? @ -none Did you discuss the management of the patient with other professionals (professionals i.e. , PA, ASSAULT AMPHIBIOUS VEHICLE OFFICER, lab, RT, psych nurse, director social welfare, lunch counter manager, teacher, nuclear officer, hospice case manager)? Give summary @ -no Was smoking cessation discussed for >3mins.? @ -no Was critical care preformed (if so, how long)? @ -no Were there social determinants of health that impacted care today? How? (Homelessness, low income, unemployed, alcoholism, drug addiction, tr ansportation, low edu. Level, literacy, decrease access to med. care, [place] [facility], rehab)? @ -none Was there de-escalation of care discussed even if they declined (Discuss DNR or withdrawal of care, Hospice)? DNR status @ -no What co-morbidities impacted this encounter? (DM, HTN, Smoking, COPD, CAD, Canc er, CVA, ARF, Chemo, Hep., AIDS, mental health diagnosis, sleep apnea, morbid obesity)? @ -none Was patient admitted / discharged? Hospital course, mention meds given and route, prescriptions, significant lab abnormalities, going to OR and other pertinent info. @ - Undiagnosed new problem with uncertain prognosis? @ -no Drug Therapy requiring intensive monitoring for toxicity (Heparin, Nitro, Insulin, Cardizem)? @ -no Were any procedures done? @ -no Diagnosis/symptom? @ - Acute, or Chronic, or Acute on Chronic? @ -Acute Uncomplicated (without systemic symptoms) or Complicated (systemic symptoms)? @ -Complicated Side effects of treatment? @ -no Exacerbation, Progression, or Severe Exacerbation? @ -exacerbation Poses a threat to life or bodily function? How? (Chest pain, [place], [place], pneumonia, PE, COPD, DKA, ARF, appy, cholecystitis, CVA, Diverticulitis, Homicidal, Suicidal, threat to staff... and all critical care pts) @ -yes Reevaluation #5: Differential Headache: Migraine, tension, cluster, carbon monoxide, central venous thrombosis, pension karma temporal arteritis, acute closure glaucoma, intercranial hemorrhage, mastoiditis, sinusitis, head injury, this is not meant to be an all-inclusive list. - Consultations Consultation #1: spoke w [facility] who agrees to admit this patient Medical Decision Making - Medical Decision Making 69 male to the ER for weakness patient comes in for weakness falls multiple falls increasing debility with recent history of surgical issues. Patient is weak 90 eating well at 19 g himself well will be admitted for observation PT OT and possible need for placement - Lab Data Result diagrams: 01/21/25 01:12 01/21/25 01:12 Lab Results 01/21/25 01/21/25 01/21/25 Range/Units 00:31 01:05 01:12 WBC 8.08 (4.50-10.00) 10*3/uL RBC 3.92 L (4.40-5.60) 10*6/uL Hgb 11.4 L (13.0-17.0) g/dL Hct 35.6 L (39.6-50.0) % MCV 90.8 (80.0-97.0) fL MCH 29.1 (27.0-32.0) pg MCHC 32.0 (32.0-37.0) g/dL Plt Count 215 (140-440) 10*3/uL MPV 10.2 (9.5-12.2) fL Immature Gran % (Auto) 0.4 % Neutrophils % 70.9 % Lymphocytes % 13.0 % Monocytes % 14.7 % Eosinophils % 0.5 % Basophils % 0.5 % Immature Gran # 0.03 (0.00-0.04) 10*3/uL Neutrophils # 5.73 (1.80-7.70) 10*3/uL Lymphocytes # 1.05 (0.90-5.00) 10*3/uL Monocytes # 1.19 H (0.20-1.00) 10*3/uL Eosinophils # 0.04 (0.04-0.35) 10*3/uL Basophils # 0.04 (0.00-0.10) 10*3/uL PT (10.0-12.5) sec INR (<1.2) APTT (22.0-30.0) sec VBG pH (7.31-7.41) VBG pCO2 (37-51) mmHg VBG HCO3 (24-28) mmol/L Sodium (137-145) mmol/L Potassium (3.5-5.1) mmol/L Chloride (98-107) mmol/L Carbon Dioxide (22-30) mmol/L Anion Gap mmol/L BUN (9-20) mg/dL Creatinine (0.66-1.25) mg/dL Est GFR (CKD-EPI)AfAm (>60 ml/min/1.73 sqM) Est GFR (CKD-EPI)NonAf (>60 ml/min/1.73 sqM) Glucose (74-99) mg/dL POC Glucose (mg/dL) 104 (70-110) mg/dL POC Glu Supervisor Dock ID [place] Plasma Lactic Acid Hudson 1.1 (0.7-2.0) mmol/L Calcium (8.4-10.2) mg/dL Phosphorus (2.5-4.5) mg/dL Magnesium (1.6-2.3) mg/dL Total Bilirubin (0.2-1.3) mg/dL AST (17-59) U/L ALT (4-49) U/L Alkaline Phosphatase (38-126) U/L Troponin I (0.000-0.034) ng/mL NT-Pro-B Natriuret Pep pg/mL Total Protein (6.3-8.2) g/dL Albumin (3.5-5.0) g/dL Urine Color Urine Appearance (Clear) Urine pH (5.0-8.0) Ur Specific Pearl (1.001-1.035) Urine Protein (Negative) Urine Glucose (UA) (Negative) Urine Ketones (Negative) Urine Blood (Negative) Urine Nitrite (Negative) Urine Bilirubin (Negative) Urine Urobilinogen (<2.0) mg/dL Ur Leukocyte Esterase (Negative) Influenza Type A (PCR) (Not Detectd) Influenza Type B (PCR) (Not Detectd) RSV (PCR) (Not Detectd) SARS-CoV-2 (PCR) (Not Detectd) 01/21/25 01/21/25 01/21/25 Range/Units 01:12 01:12 01:12 WBC (4.50-10.00) 10*3/uL RBC (4.40-5.60) 10*6/uL Hgb (13.0-17.0) g/dL Hct (39.6-50.0) % MCV (80.0-97.0) fL MCH (27.0-32.0) pg MCHC (32.0-37.0) g/dL Plt Count (140-440) 10*3/uL MPV (9.5-12.2) fL Immature Gran % (Auto) % Neutrophils % % Lymphocytes % % Monocytes % % Eosinophils % % Basophils % % Immature Gran # (0.00-0.04) 10*3/uL Neutrophils # (1.80-7.70) 10*3/uL Lymphocytes # (0.90-5.00) 10*3/uL Monocytes # (0.20-1.00) 10*3/uL Eosinophils # (0.04-0.35) 10*3/uL Basophils # (0.00-0.10) 10*3/uL PT 14.7 H (10.0-12.5) sec INR 1.4 H (<1.2) APTT 27.3 (22.0-30.0) sec VBG pH (7.31-7.41) VBG pCO2 (37-51) mmHg VBG HCO3 (24-28) mmol/L Sodium 142 (137-145) mmol/L Potassium 3.7 (3.5-5.1) mmol/L Chloride 102 (98-107) mmol/L Carbon Dioxide 28 (22-30) mmol/L Anion Gap 12 mmol/L BUN 16 (9-20) mg/dL Creatinine 0.77 (0.66-1.25) mg/dL Est GFR (CKD-EPI)AfAm >90 (>60 ml/min/1.73 sqM) Est GFR (CKD-EPI)NonAf >90 (>60 ml/min/1.73 sqM) Glucose 106 H (74-99) mg/dL POC Glucose (mg/dL) (70-110) mg/dL POC Glu Supervisor Dock ID Plasma Lactic Acid Hudson (0.7-2.0) mmol/L Calcium 9.0 (8.4-10.2) mg/dL Phosphorus 3.7 (2.5-4.5) mg/dL Magnesium 1.7 (1.6-2.3) mg/dL Total Bilirubin 1.0 (0.2-1.3) mg/dL AST 29 (17-59) U/L ALT 11 (4-49) U/L Alkaline Phosphatase 112 (38-126) U/L Troponin I <0.012 (0.000-0.034) ng/mL NT-Pro-B Natriuret Pep 286 pg/mL Total Protein 7.3 (6.3-8.2) g/dL Albumin 3.6 (3.5-5.0) g/dL Urine Color Urine Appearance (Clear) Urine pH (5.0-8.0) Ur Specific Pearl (1.001-1.035) Urine Protein (Negative) Urine Glucose (UA) (Negative) Urine Ketones (Negative) Urine Blood (Negative) Urine Nitrite (Negative) Urine Bilirubin (Negative) Urine Urobilinogen (<2.0) mg/dL Ur Leukocyte Esterase (Negative) Influenza Type A (PCR) (Not Detectd) Influenza Type B (PCR) (Not Detectd) RSV (PCR) (Not Detectd) SARS-CoV-2 (PCR) (Not Detectd) 01/21/25 01/21/25 01/21/25 Range/Units 01:24 01:36 02:15 WBC (4.50-10.00) 10*3/uL RBC (4.40-5.60) 10*6/uL Hgb (13.0-17.0) g/dL Hct (39.6-50.0) % MCV (80.0-97.0) fL MCH (27.0-32.0) pg MCHC (32.0-37.0) g/dL Plt Count (140-440) 10*3/uL MPV (9.5-12.2) fL Immature Gran % (Auto) % Neutrophils % % Lymphocytes % % Monocytes % % Eosinophils % % Basophils % % Immature Gran # (0.00-0.04) 10*3/uL Neutrophils # (1.80-7.70) 10*3/uL Lymphocytes # (0.90-5.00) 10*3/uL Monocytes # (0.20-1.00) 10*3/uL Eosinophils # (0.04-0.35) 10*3/uL Basophils # (0.00-0.10) 10*3/uL PT (10.0-12.5) sec INR (<1.2) APTT (22.0-30.0) sec VBG pH 7.38 (7.31-7.41) VBG pCO2 51 (37-51) mmHg VBG HCO3 30 H (24-28) mmol/L Sodium (137-145) mmol/L Potassium (3.5-5.1) mmol/L Chloride (98-107) mmol/L Carbon Dioxide (22-30) mmol/L Anion Gap mmol/L BUN (9-20) mg/dL Creatinine (0.66-1.25) mg/dL Est GFR (CKD-EPI)AfAm (>60 ml/min/1.73 sqM) Est GFR (CKD-EPI)NonAf (>60 ml/min/1.73 sqM) Glucose (74-99) mg/dL POC Glucose (mg/dL) (70-110) mg/dL POC Glu Supervisor Dock ID Plasma Lactic Acid Hudson (0.7-2.0) mmol/L Calcium (8.4-10.2) mg/dL Phosphorus (2.5-4.5) mg/dL Magnesium (1.6-2.3) mg/dL Total Bilirubin (0.2-1.3) mg/dL AST (17-59) U/L ALT (4-49) U/L Alkaline Phosphatase (38-126) U/L Troponin I (0.000-0.034) ng/mL NT-Pro-B Natriuret Pep pg/mL Total Protein (6.3-8.2) g/dL Albumin (3.5-5.0) g/dL Urine Color Yellow Urine Appearance Clear (Clear) Urine pH 5.5 (5.0-8.0) Ur Specific Pearl 1.027 (1.001-1.035) Urine Protein Trace H (Negative) Urine Glucose (UA) Negative (Negative) Urine Ketones 1+ H (Negative) Urine Blood Negative (Negative) Urine Nitrite Negative (Negative) Urine Bilirubin Negative (Negative) Urine Urobilinogen 3.0 (<2.0) mg/dL Ur Leukocyte Esterase Negative (Negative) Influenza Type A (PCR) Not Detected (Not Detectd) Influenza Type B (PCR) Not Detected (Not Detectd) RSV (PCR) Not Detected (Not Detectd) SARS-CoV-2 (PCR) Not Detected (Not Detectd) - EKG Data -: EKG Interpreted by Me (EKG is sinus 72 MN 199 QRS 101 QTc 436) - Radiology Data Radiology results: report reviewed (CT brain cspine is negative for acute dise ase, CXR is negative for acute dz), image reviewed Disposition Clinical Impression: Fall, Weakness Disposition: HOME SELF-CARE Condition: Good Instructions (If sedation given, give patient instructions): Fall Prevention for Older Adults (ED) Is patient prescribed a controlled substance at d/c from ED?: No Referrals: None,Stated [REFERRING] - 1-2 days
[2025-01-21 00:33] LABS: Glucose,Whole Blood 104 mg/dL (70-110)
--- NOTE | 2025-01-21 01:27 | CT ---
EXAM: CT Head Without Intravenous Contrast CLINICAL HISTORY: Fall TECHNIQUE: Axial computed tomography images of the head/brain without intravenous contrast. CTDI is 45.2 mGy and DLP is 1115 mGy-cm. This CT exam was performed using one or more of the following dose reduction techniques: automated exposure control, adjustment of the mA and/or kV according to patient size, and/or use of iterative reconstruction technique. COMPARISON: No relevant prior studies available. FINDINGS: Brain: No intracranial hemorrhage. No significant mass effect. Stable encephalomalacia with hypodense changes involving the right basal ganglia, extending to the bolden radiata superiorly. Diffuse underlying prominence of the cerebral sulci and sylvian fissures. No significant white matter disease. Ventricles: Unremarkable. No ventriculomegaly. Bones/joints: Unremarkable. No acute fracture. Soft tissues: No significant overlying acute traumatic soft tissue abnormality. No radiopaque foreign body. Sinuses: Unremarkable as visualized. No acute sinusitis. Mastoid air cells: The mastoid air cells are poorly pneumatized. IMPRESSION: No acute intracranial process identified. Incidental chronic findings, as noted above. EXAM: CT Cervical Spine Without Intravenous Contrast CLINICAL HISTORY: Fall TECHNIQUE: Axial computed tomography images of the cervical spine without intravenous contrast. CTDI is 37.8 mGy and DLP is 1048.9 mGy-cm. This CT exam was performed using one or more of the following dose reduction techniques: automated exposure control, adjustment of the mA and/or kV according to patient size, and/or use of iterative reconstruction technique. COMPARISON: No relevant prior studies available. FINDINGS: Vertebrae: The vertebral bodies are intact without acute osseous traumatic injury. No anterolisthesis or retrolisthesis is identified. The facet joints are well aligned without subluxation or dislocation. The pedicles, transverse processes and spinous processes are intact. Bilateral chronic facet hypertrophic arthropathy incidentally noted. Degenerative ankylosis from C4-5 through C5-6 bilaterally. Discs/spinal canal/neural foramina: Anterior fusion from C4 through C6 levels. Incidental chronic appearing multilevel disc spondylosis noted with narrowing and marginal hypertrophic changes. No significant acute central canal stenosis identified. Soft tissues: Unremarkable. Lung apices: The included lung apices demonstrate no evidence for acute traumatic injury. IMPRESSION: No acute osseous traumatic injury or significant abnormal alignment involving the cervical spine. Incidental anterior fusion from C4 through C6. Chronic multilevel degenerative changes throughout the cervical spine.
[2025-01-21] MEDS: SODIUM CHLORIDE 0.9% 1,000 ML IV ONE (01:32)
[2025-01-21 01:33] LABS: Basophils # (A) 0.04 10*3/uL (0.00-0.10); Basophils % (A) 0.5 %; Eosinophils # (A) 0.04 10*3/uL (0.04-0.35); Eosinophils % (A) 0.5 %; HCT 35.6 % (39.6-50.0); HGB 11.4 g/dL (13.0-17.0); Lymphocytes # (A) 1.05 10*3/uL (0.90-5.00); Lymphocytes % (A) 13.0 %; MCH 29.1 pg (27.0-32.0); MCHC 32.0 g/dL (32.0-37.0); MCV 90.8 fL (80.0-97.0); Monocytes # (A) 1.19 10*3/uL (0.20-1.00); Monocytes % (A) 14.7 %; Neutrophils # (A) 5.73 10*3/uL (1.80-7.70); Neutrophils % (A) 70.9 %; Platelet Count 215 10*3/uL (140-440); RBC 3.92 10*6/uL (4.40-5.60); RDW 14.6 % (11.5-14.5); WBC 8.08 10*3/uL (4.50-10.00)
[2025-01-21 01:34] LABS: VBG HCO3 30.0 mmol/L (24-28); VBG PCO2 51.0 mmHg (37-51); VBG PH 7.38 (7.31-7.41)
[2025-01-21 01:42] LABS: INR 1.4 (<1.2); Partial Thromboplastin Time 27.3 sec (22.0-30.0); Prothrombin Time 14.7 sec (10.0-12.5)
[2025-01-21 01:50] LABS: ALT 11 U/L (4-49); AST 29 U/L (17-59); African American GFR (CKD) >90 (>60 ml/min/1.73 sqM); Albumin 3.6 g/dL (3.5-5.0); Alkaline Phosphatase 112 U/L (38-126); Anion Gap 12 mmol/L; Blood Urea Nitrogen 16 mg/dL (9-20); Calcium 9.0 mg/dL (8.4-10.2); Carbon Dioxide 28 mmol/L (22-30); Chloride 102 mmol/L (98-107); Glucose 106 mg/dL (74-99); Magnesium 1.7 mg/dL (1.6-2.3); Non-African American GFR(CKD) >90 (>60 ml/min/1.73 sqM); Potassium 3.7 mmol/L (3.5-5.1); Sodium 142 mmol/L (137-145); Total Protein 7.3 g/dL (6.3-8.2)
[2025-01-21 01:59] LABS: NT-Pro-B-Type Natriuretic Pept 286 pg/mL
[2025-01-21 02:37] LABS: RSV Not Detected (Not Detectd)
--- NOTE | 2025-01-21 02:47 | XR ---
EXAM: XR Chest, 1 View CLINICAL HISTORY: Weakness TECHNIQUE: Frontal view of the chest. COMPARISON: Portable chest single view 11/30/2024 FINDINGS: Lungs: No definite focal airspace consolidation. The pulmonary vasculature appears similar. Pleural space: No obvious pleural effusion or pneumothorax, accounting for supine technique. Heart: Cardiomegaly, presumed accentuated by portable supine oblique technique. Mediastinum: The mediastinal contours are accentuated by obliquity. No appreciable tracheal deviation. Bones/joints: Bilateral shoulder arthroplasties, similar. Incidental anterior fusion of the cervical spine. No acute fracture. IMPRESSION: No focal consolidation or acute cardiopulmonary process identified.
[2025-01-21] MEDS: ACETAMINOPHEN IV (For NPO) 1,000 MG in EMPTY BAG 1 BAG IVPB ONE (02:55)
[2025-01-21 03:48] LABS: Bilirubin,Urine Negative (Negative); Blood,Urine Negative (Negative); Color,Urine Yellow; Glucose,Urine (UA) Negative (Negative); Ketones,Urine 1+ (Negative); Leukocyte Esterase,Urine Negative (Negative); Nitrite,Urine Negative (Negative); PH, Urine 5.5 (5.0-8.0); Protein,Urine Trace (Negative); Specific Gravity,Urine 1.027 (1.001-1.035); Urobilinogen,Urine 3.0 mg/dL (<2.0)
[2025-01-21] MEDS ORDERED: ONDANSETRON 4 MG/2 ML VIAL IVP PRN (03:56)
[2025-01-21] MEDS ORDERED: KETOROLAC 15 MG/ML 1 ML VIAL IVP PRN (03:56)
[2025-01-21] MEDS ORDERED: NALOXONE 0.4 MG/ML 1 ML VIAL IV PRN (03:56)
[2025-01-21] MEDS: KETOROLAC 15 MG/ML 1 ML VIAL IVP STA (03:59)
[2025-01-21] MEDS: DEXTROSE 5%-0.45% NACL 1,000 ML IV SCH (04:53)
[2025-01-21 07:44] VITALS: RESP 18
[2025-01-21 13:15] VITALS: BP 122/79; PULSE 70; TEMP 98.4
[2025-01-21] MEDS ORDERED: oxyCODONE-APAP 5-325MG 1 EACH TAB PO PRN (13:56)
[2025-01-21] MEDS ORDERED: ACETAMINOPHEN TAB 325 MG TAB PO PRN (13:57)
--- NOTE | 2025-01-21 15:48 | P.HPIM ---
History of Present Illness H&P Date: 01/21/25 This is a 69-year-old male with medical history significant for recent reverse right total shoulder arthroplasty on 11/26, recent lumbar surgery in the form of L1-L2 and L2-L3 posterior lateral interbody fusion on 11/30, patient underwent Revision right total shoulder arthroplastyopen reduction on 12/12. Patient was discharged to [facility] and was discharged from the subacute rehab facility on Monday, January 18. Medical history was gathered from the family bedside and state that patient did fall on Monday and his fallen multiple times since being home from rehab. He is supposed to follow-up with his PCP Dr. Deven Jaime tomorrow in the office in regards to preoperative clearance for another revision of his right shoulder arthroplasty which is scheduled for February 10. Patient denies any chest pain or shortness of breath. He is awake alert oriented. He does have history of dementia and per the he is up during the day and becomes extremely fatigued later on in the evening and because of this he tends to fall later on in the afternoon. He states that he was sitting up on the edge of his bed on his mattress and he slid off to the ground and was trapped in between the wall and his gun safe. He was unable to get himself up. EMS was called and patient was brought to the hospital for evaluation. He denies hitting his head. His cervical spine CT reveals no acute intracranial process there is stable encephalomalacia with hypodense changes involving the right basal cannula extending into the carotid radiata superiorly. Diffuse underlying prominence of the cerebral sulci and sylvian fissures. No significant white matter disease.'s are incidental chronic findings. There is no acute osseous traumatic injury or significant abnormal alignment involving the cervical spine. There is incidental anterior fusion from C4-C6. Chronic multilevel degenerative changes throughout the cervical spine. Patient also had a chest x- ray completed which was unremarkable for any acute cardiopulmonary process. No focal consolidation identified. Patient had an EKG completed which reveals normal sinus rhythm heart rate of [address] or T wave changes. QT QTc interval 411/436. His labs reveal a white blood cell count of 8.08, hemoglobin 11.4, sodium of 142 potassium 3.7, BUN of 16 creatinine of 0.77. Blood glucose of 106. Lactic acid of 1.1. Phos of 3.7. Magnesium 1.7. AST ALT and alk phos are all within normal limits. Troponin level was negative. proBNP was not elevated at 286. Urinalysis was completed showing trace protein and 1+ ketones without any evidence of an acute UTI. His viral swab was negative for influenza RSV and COVID. Patient was admitted to the hospital for further evaluation and PT OT consultation. REVIEW OF SYSTEMS: CONSTITUTIONAL: No fever, no malaise, no fatigue. HEENT: No recent visual problems or hearing problems. Denied any sore throat. CARDIOVASCULAR: No chest pain, orthopnea, PND, no palpitations, no syncope. PULMONARY: No shortness of breath, no cough, no hemoptysis. GASTROINTESTINAL: No diarrhea, no nausea, no vomiting, no abdominal pain. NEUROLOGICAL: No headaches, no weakness, no numbness. HEMATOLOGICAL: Denies any bleeding or petechiae. GENITOURINARY: Denies any burning micturition, frequency, or urgency. MUSCULOSKELETAL/RHEUMATOLOGICAL: Denies any joint pain, swelling, or any muscle pain. ENDOCRINE: Denies any polyuria or polydipsia. The rest of the 14-point review of systems is negative. PHYSICAL EXAMINATION: GENERAL: The patient is alert and oriented x3, not in any acute distress. Well developed, well nourished. HEENT: Pupils are round and equally reacting to light. EOMI. No scleral icterus. No conjunctival pallor. Normocephalic, atraumatic. No pharyngeal erythema. No thyromegaly. CARDIOVASCULAR: S1 and S2 present. No murmurs, rubs, or gallops. PULMONARY: Chest is clear to auscultation, no wheezing or crackles. ABDOMEN: Soft, nontender, nondistended, normoactive bowel sounds. No palpable organomegaly. MUSCULOSKELETAL: No joint swelling or deformity. EXTREMITIES: No cyanosis, clubbing, or pedal edema. Well aproximated and healed scar to the right shoulder with obvious deformity and maintained in soft sling. NEUROLOGICAL: Gross neurological examination did not reveal any focal deficits. SKIN: No rashes. Assessment Slip and fall unable to get himself up Generalized weakness and frequent falls Reverse right total shoulder arthroplasty 11/26 with revision on 12/12 Lumbar surgery L1-L2 and L2-L3 PLIF on 11/2023 History of hypertension History of atrial fibrillation, paroxysmal Hx of stroke with memory affected in 2009 Dementia Hyperlipidemia Sleep apnea with CPAP use Multiple orthopedic surgeries GI prophylaxis DVT prophylaxis Full Code Plan PT/OT evaluation completed patient can discharge home and go to his scheduled appointment with Dr Jaime tomorrow No evidence of infection, patient is afebrile, white blood cell count not elevated, UA and chest xray unremarkable Discussed with family if they think patient needs more FER-they state he is out of rehab days currently They would like him to continue on the course of preoperative clearance for his right shoulder surgery at [place] on 02/10/2025. Home medications reviewed and can continue all same home medications on discharge Patient can be discharged home and follow up with PCP tomorrow. The impression and plan of care has been dictated by Wendy Swift, Nurse Practitioner as directed. Dr. Felipe MD I have performed a history and physical examination and medical decision making of this patient, discussed the same with the dictator, and agree with the dictators assessment and plan as written, documented as a scribe. Based on total visit time, I have performed more than 50% of this visit. 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 Currently at [facility], able to take a few steps only, otherwise in a wheelchair. Had right shoulder replacement 11/26/24, then fell and hurt his back, had L1-L2 fusion with revision of L2-L3 fusion on 11/30/24, recent right shoulder surgery (01/01). History of Any Multi-Drug Resistant Organisms: None Reported Past Surgical History: Back Surgery, Heart Catheterization, Hernia Repair, Joint Replacement, Orthopedic Surgery Additional Past Surgical History / Comment(s): BILATERAL TOTAL KNEE REPLACEMENTS, BILATERAL SHOULDER REPLACEMENTS, C4-C5-C6 FUSION, L2-L3 FUSION, BILATERAL CARPAL TUNNEL RELEASE, COLONOSCOPY, CARDIOVERSION 2012, TRIGGER FINGER RELEASES, L1-L2 FUSION, REVISION OF L2-L3 FUSION, Past Anesthesia/Blood Transfusion Reactions: No Reported Reaction Additional Past Anesthesia/Blood Transfusion Reaction / Comment(s): Slow to wake from anesthesia. Past Psychological History: Anxiety Additional Psychological History / Comment(s): CLAUTROPHOBIA. Smoking Status: Never smoker Past Alcohol Use History: None Reported Past Drug Use History: None Reported - Past Family History Father Family Medical History: Cancer Mother Family Medical History: CVA/TIA, Diabetes Mellitus, Hyperlipidemia, Hype rtension, Rheumatoid Arthritis (RA) Additional Family Medical History / Comment(s): Sinus headaches, headaches, aneursym passed at 47 years old. Sister(s) Additional Family Medical History / Comment(s): Epilepsy. Medications and Allergies Home Medications Medication Instructions Recorded Confirmed Type Cyclobenzaprine [Flexeril] 5 mg PO HS 10/04/22 01/21/25 History Divalproex [Depakote] 250 mg PO TID 10/04/22 01/21/25 History Furosemide [Lasix] 20 mg PO DAILY 10/04/22 01/21/25 History Memantine [Namenda] 5 mg PO BID 10/04/22 01/21/25 History Amiodarone [Cordarone] 100 mg PO BID 10/12/22 01/21/25 History Tamsulosin HCl [Flomax] 0.4 mg PO DAILY 10/19/22 01/21/25 History Levothyroxine Sodium [Synthroid] 175 mcg PO DAILY 11/28/24 01/21/25 History rOPINIRole HCL 8 mg PO HS 11/28/24 01/21/25 History rOPINIRole HCL [Requip] 4 mg PO QAM 11/28/24 01/21/25 History Atorvastatin Calcium 40 mg PO HS 12/11/24 01/21/25 History Cyanocobalamin [Vitamin B-12] 1,000 mcg PO DAILY 12/11/24 01/21/25 History Lactulose [Cephulac] 15 ml PO BID 12/11/24 01/21/25 History Metoprolol Tartrate 25 mg PO BID 12/11/24 01/21/25 History polyethylene glycoL 3350 [Miralax] 17 gm PO DAILY PRN 12/11/24 01/21/25 History Dabigatran Etexilate Mesylate 150 mg PO BID 12/12/24 01/21/25 History [Pradaxa] Pregabalin [Lyrica] 225 mg PO BID 3 Days #6 cap 12/16/24 01/21/25 Rx Sennosides-Docusate Sodium 2 tab PO HS 01/21/25 01/21/25 History [Senokot-S] oxyCODONE-APAP 5-325MG [Percocet 1 tab PO Q4H PRN 01/21/25 01/21/25 History 5-325 mg] Allergies Allergy/AdvReac Type Severity Reaction Status Date / Time morphine AdvReac Nausea & Verified 01/21/25 11:30 Vomiting Physical Exam Vitals: Vital Signs Temp Pulse Pulse Resp BP BP Pulse Ox 01/21/25 13:10 98.4 F 70 18 122/79 98 01/21/25 07:43 94 L 01/21/25 07:36 97.5 F L 63 18 162/79 100 01/21/25 06:15 61 16 119/66 94 L 01/21/25 04:56 63 14 132/77 97 01/21/25 03:43 98.6 F 67 22 115/68 94 L 01/21/25 02:35 72 22 139/74 01/21/25 01:05 71 20 111/83 96 01/21/25 00:19 99.8 F H 75 18 126/78 95 Intake and Output 01/21/25 01/21/25 01/21/25 06:59 14:59 22:59 Other: Voiding Method Bedside Commode Diaper Weight 123.559 kg Results CBC & Chem 7: 01/21/25 01:12 01/21/25 01:12 Labs: Abnormal Lab Results - Last 24 Hours (Table) 01/21/25 01/21/25 01/21/25 Range/Units 01:12 01:12 01:12 RBC 3.92 L (4.40-5.60) 10*6/uL Hgb 11.4 L (13.0-17.0) g/dL Hct 35.6 L (39.6-50.0) % Monocytes # 1.19 H (0.20-1.00) 10*3/uL PT 14.7 H (10.0-12.5) sec INR 1.4 H (<1.2) VBG HCO3 (24-28) mmol/L Glucose 106 H (74-99) mg/dL Urine Protein (Negative) Urine Ketones (Negative) 01/21/25 01/21/25 Range/Units 01:24 02:15 RBC (4.40-5.60) 10*6/uL Hgb (13.0-17.0) g/dL Hct (39.6-50.0) % Monocytes # (0.20-1.00) 10*3/uL PT (10.0-12.5) sec INR (<1.2) VBG HCO3 30 H (24-28) mmol/L Glucose (74-99) mg/dL Urine Protein Trace H (Negative) Urine Ketones 1+ H (Negative) Thrombosis Risk Factor Assmnt - Choose All That Apply Any of the Below Risk Factors Present?: No Other Risk Factors: No Other congenital or acquired thrombophilia - If yes, enter type in comment: No Thrombosis Risk Factor Assessment Level: Very Low Risk Assessment and Plan Time with Patient: Greater than 30
--- NOTE | 2025-01-21 15:51 | P.DS ---
Providers Date of admission: 01/21/25 03:57 Attending physician: Josette Laurent Primary care physician: Deven Jaime Hospital Course: Final Diagnosis Slip and fall unable to get himself up Generalized weakness and frequent falls Reverse right total shoulder arthroplasty 11/26 with revision on 12/12 Lumbar surgery L1-L2 and L2-L3 PLIF on 11/2023 History of hypertension History of atrial fibrillation, paroxysmal Hx of stroke with memory affected in 2009 Dementia Hyperlipidemia Sleep apnea with CPAP use Multiple orthopedic surgeries GI prophylaxis DVT prophylaxis Full Code Discharge Disposition Patient stable for DC home with overall guarded prognosis. PT/OT evaluation completed patient can discharge home and go to his scheduled appointment with Dr Jaime tomorrow. No evidence of infection, patient is afebrile, white blood cell count not elevated, UA and chest xray unremarkable. They would like him to continue on the course of preoperative clearance for his right shoulder surgery at [place] on 02/10/2025. Home medications reviewed and can continue all same home medications on discharge. He is a high risk for readmission due to frequent falls. Hospital Course This is a 69-year-old male with medical history significant for recent reverse right total shoulder arthroplasty on 11/26, recent lumbar surgery in the form of L1-L2 and L2-L3 posterior lateral interbody fusion on 11/30, patient underwent Revision right total shoulder arthroplastyopen reduction on 12/12. Patient was discharged to [facility] and was discharged from the subacute rehab facility on Monday, January 18. Medical history was gathered from the family bedside and state that patient did fall on Monday and his fallen multiple times since being home from rehab. He is supposed to follow-up with his PCP Dr. Deven Jaime tomorrow in the office in regards to preoperative clearance for another revision of his right shoulder arthroplasty which is scheduled for February 10. Patient denies any chest pain or shortness of breath. He is awake alert oriented. He does have history of dementia and per the he is up during the day and becomes extremely fatigued later on in the evening and because of this he tends to fall later on in the afternoon. He states that he was sitting up on the edge of his bed on his mattress and he slid off to the ground and was trapped in between the wall and his gun safe. He was unable to get himself up. EMS was called and patient was brought to the hospital for evaluation. He denies hitting his head. His cervical spine CT reveals no acute intracranial process there is stable encephalomalacia with hypodense changes involving the right ba shmuel cannula extending into the carotid radiata superiorly. Diffuse underlying prominence of the cerebral sulci and sylvian fissures. No significant white matter disease.'s are incidental chronic findings. There is no acute osseous traumatic injury or significant abnormal alignment involving the cervical spine. There is incidental anterior fusion from C4-C6. Chronic multilevel degenerative changes throughout the cervical spine. Patient also had a chest x- ray completed which was unremarkable for any acute cardiopulmonary process. No focal consolidation identified. Patient had an EKG completed which reveals normal sinus rhythm heart rate of [address] or T wave changes. QT QTc interval 411/436. His labs reveal a white blood cell count of 8.08, hemoglobin 11.4, sodium of 142 potassium 3.7, BUN of 16 creatinine of 0.77. Blood glucose of 106. Lactic acid of 1.1. Phos of 3.7. Magnesium 1.7. AST ALT and alk phos are all within normal limits. Troponin level was negative. proBNP was not elevated at 286. Urinalysis was completed showing trace protein and 1+ ketones without any evidence of an acute UTI. His viral swab was negative for influenza RSV and COVID. Patient was admitted to the hospital for further evaluation and PT OT consultation. OT evaluated the patient he did well up with a cane and cleared for DC home. He is awake alert and oriented resting comfortably in bed. Review of Systems Constitutional: Denied any fatigue denied any fever. Cardio vascular: denied any chest pain, palpitations Gastrointestinal: denied any nausea, vomiting, diarrhea Pulmonary: Denied any shortness of breath cough Neurologic denied any new focal deficits All inpatient medications were reviewed and appropriate changes in these medications as dictated in the interval history and assessment and plan. Please see medication reconciliation for a list of current medications. Thank you for allowing us to participate in the care of this patient. The impression and plan of care has been dictated by Wendy Swift, Nurse Practitioner as directed. Dr. Felipe MD I have performed a history and physical examination and medical decision making of this patient, discussed the same with the dictator, and agree with the dictators assessment and plan as written, documented as a scribe. Based on total visit time, I have performed more than 50% of this visit. Patient Condition at Discharge: Fair Plan - Discharge Summary Discharge Rx Participant: Yes New Discharge Prescriptions: Continue Memantine [Namenda] 5 mg PO BID Divalproex [Depakote] 250 mg PO TID Furosemide [Lasix] 20 mg PO DAILY Levothyroxine Sodium [Synthroid] 175 mcg PO DAILY Metoprolol Tartrate 25 mg PO BID Atorvastatin Calcium 40 mg PO HS Lactulose [Cephulac] 15 ml PO BID polyethylene glycoL 3350 [Miralax] 17 gm PO DAILY PRN PRN Reason: Constipation Pregabalin [Lyrica] 225 mg PO BID 3 Days #6 cap Sennosides-Docusate Sodium [Senokot-S] 2 tab PO HS Cyclobenzaprine [Flexeril] 5 mg PO HS Amiodarone [Cordarone] 100 mg PO BID Tamsulosin HCl [Flomax] 0.4 mg PO DAILY rOPINIRole HCL 8 mg PO HS rOPINIRole HCL [Requip] 4 mg PO QAM Cyanocobalamin [Vitamin B-12] 1,000 mcg PO DAILY Dabigatran Etexilate Mesylate [Pradaxa] 150 mg PO BID oxyCODONE-APAP 5-325MG [Percocet 5-325 mg] 1 tab PO Q4H PRN PRN Reason: Pain Discharge Medication List Cyclobenzaprine [Flexeril] 5 mg PO HS 10/04/22 [History] Divalproex [Depakote] 250 mg PO TID 10/04/22 [History] Furosemide [Lasix] 20 mg PO DAILY 10/04/22 [History] Memantine [Namenda] 5 mg PO BID 10/04/22 [History] Amiodarone [Cordarone] 100 mg PO BID 10/12/22 [History] Tamsulosin HCl [Flomax] 0.4 mg PO DAILY 10/19/22 [History] Levothyroxine Sodium [Synthroid] 175 mcg PO DAILY 11/28/24 [History] rOPINIRole HCL 8 mg PO HS 11/28/24 [History] rOPINIRole HCL [Requip] 4 mg PO QAM 11/28/24 [History] Atorvastatin Calcium 40 mg PO HS 12/11/24 [History] Cyanocobalamin [Vitamin B-12] 1,000 mcg PO DAILY 12/11/24 [History] Lactulose [Cephulac] 15 ml PO BID 12/11/24 [History] Metoprolol Tartrate 25 mg PO BID 12/11/24 [History] polyethylene glycoL 3350 [Miralax] 17 gm PO DAILY PRN 12/11/24 [History] Dabigatran Etexilate Mesylate [Pradaxa] 150 mg PO BID 12/12/24 [History] Pregabalin [Lyrica] 225 mg PO BID 3 Days #6 cap 12/16/24 [Rx] Sennosides-Docusate Sodium [Senokot-S] 2 tab PO HS 01/21/25 [History] oxyCODONE-APAP 5-325MG [Percocet 5-325 mg] 1 tab PO Q4H PRN 01/21/25 [History] Follow up Appointment(s)/Referral(s): Deven Jaime MD [Primary Care Provider] - 01/22/25 Patient Instructions/Handouts: Fall Prevention for Older Adults (ED) Discharge Disposition: HOME SELF-CARE
[2025-01-21] MEDS: DIVALPROEX 250 MG TABLET.DR PO SCH (16:48)
[2025-01-21] MEDS ORDERED: AMIODARONE 100 MG TAB PO SCH (21:00)
[2025-01-21] MEDS ORDERED: SENNOSIDES-DOCUSATE SODIUM 1 EACH TAB PO SCH (21:00)
[2025-01-21] MEDS ORDERED: MEMANTINE 5 MG TAB PO SCH (21:00)
[2025-01-21] MEDS ORDERED: ATORVASTATIN 40 MG TAB PO SCH (21:00)
[2025-01-21] MEDS ORDERED: METOPROLOL TARTRATE 25 MG TAB PO SCH (21:00)
[2025-01-21] MEDS ORDERED: LACTULOSE 20 GM/30 ML CUP PO SCH (21:00)
[2025-01-21] MEDS ORDERED: HEPARIN SODIUM,PORCINE 5,000 UNIT/ML 1 ML VIAL SQ SCH (21:00)
[2025-01-21] MEDS ORDERED: rOPINIRole HCL 4 MG TABLET PO SCH (21:00)
[2025-01-21] MEDS ORDERED: DABIGATRAN 150 MG CAP PO SCH (21:00)
[2025-01-21] MEDS ORDERED: PREGABALIN 75 MG CAP PO SCH (21:00)
[2025-01-22] MEDS ORDERED: LEVOTHYROXINE 88 MCG TAB PO SCH (06:30)
[2025-01-22] MEDS ORDERED: rOPINIRole HCL 4 MG TABLET PO SCH (09:00)
[2025-01-22] MEDS ORDERED: CYANOCOBALAMIN 500 MCG TAB PO SCH (09:00)
[2025-01-22] MEDS ORDERED: TAMSULOSIN 0.4 MG CAP.ER.24H PO SCH (09:00)
== END 2025-01-21 18:14 | disposition home or self-care (01) ==
LOC: EC 00:18 → 5NMEDONC 03:57
PROVIDERS: ADMIT Hospitalist; ATTEND Hospitalist
DX: R53.1 Weakness (principal); R29.6 Repeated falls; E78.5 Hyperlipidemia, unspecified; F03.94 Unspecified dementia, unspecified severity, with anxiety; G47.30 Sleep apnea, unspecified; I11.0 Hypertensive heart disease with heart failure; I50.9 Heart failure, unspecified; I48.0 Paroxysmal atrial fibrillation; S09.90XA Unspecified injury of head, initial encounter; W01.0XXA Fall on same level from slipping, tripping and stumbling without subsequent striking against object, initial encounter; M19.90 Unspecified osteoarthritis, unspecified site; Z79.890 Hormone replacement therapy; Z79.899 Other long term (current) drug therapy; Z86.73 Personal history of transient ischemic attack (TIA), and cerebral infarction without residual deficits; Z96.653 Presence of artificial knee joint, bilateral; Z96.611 Presence of right artificial shoulder joint; Z96.612 Presence of left artificial shoulder joint; Z98.1 Arthrodesis status; Z88.5 Allergy status to narcotic agent
CPT/HCPCS: 96361; 96374; 99285; 36415; 94760; 93005; 97166; 83880; 80053; 82803; 83605; 83735; 84100; 84484; 85025; 85610; 85730; 81003; 87636; 71045; 72125; 70450; G0378; J0131

== ENCOUNTER → 2025-01-27 | Outpatient (CLI) | payer MEDICARE, OTHER | END | disposition home or self-care (01) | LOC: LABWHC1 10:27 | PROVIDERS: ATTEND Orthopaedic Surgery | DX: Z01.818 Encounter for other preprocedural examination (principal); Z01.812 Encounter for preprocedural laboratory examination | CPT/HCPCS: 87070 ==